=== PATIENT | female | born 1990 | race Caucasian/White ===

== ENCOUNTER → 2016-10-19 | Outpatient (CLI) | payer OTHER ==
[2016-10-19 12:45] LABS: CH 30.4; CHCM 33.8; HDW 2.53; MCH 30.3 pg (25.0-35.0); MCHC 33.5 g/dL (31.0-37.0); MCV 90.4 fL (80.0-100.0); Mean Platelet Volume 8.6; RBC 3.98 m/uL (3.80-5.40); RDW 12.9 % (11.5-15.5); WBC 13.5 k/uL (3.8-10.6)
[2016-10-19 12:52] LABS: Appearance,Urine Cloudy (Clear); Bacteria,Urine Occasional /hpf; Bilirubin,Urine Negative (Negative); Glucose,Urine (UA) Negative (Negative); Ketones,Urine Negative (Negative); Leukocyte Esterase,Urine Moderate (Negative); Mucus,Urine Few /hpf; Nitrite,Urine Negative (Negative); Particle Count 12181; Protein,Urine 1+ (Negative); Squamous Epithelial Cell,Urine 4 /hpf (0-4); UA Billing (MACRO vs. MICRO) MICRO; Urobilinogen,Urine <2.0 mg/dL (<2.0); WBC,Urine 4 /hpf (0-5)
== END | disposition home or self-care (01) ==
LOC: LABWHC1 10:48
PROVIDERS: ATTEND Obstetrics & Gynecology
DX: Z34.82 Encounter for supervision of other normal pregnancy, second trimester (principal); Z3A.00 Weeks of gestation of pregnancy not specified
CPT/HCPCS: 36415; 81001; 82950; 85027; 87086; 87491; 87591

== ENCOUNTER → 2016-11-09 | Outpatient (CLI) | payer OTHER ==
[2016-11-09 16:57] LABS: CH 30.7; CHCM 34.5; HCT 36.5 % (34.0-46.0); HDW 2.63; HGB 12.4 gm/dL (11.4-16.0); MCH 30.4 pg (25.0-35.0); MCV 89.3 fL (80.0-100.0); Mean Platelet Volume 9.4; RBC 4.08 m/uL (3.80-5.40)
[2016-11-09 19:13] LABS: Hemoglobin A1C 4.9 % (4.2-6.1)
== END | disposition home or self-care (01) ==
LOC: LABWHC1 16:00
PROVIDERS: ATTEND Obstetrics & Gynecology
DX: Z34.93 Encounter for supervision of normal pregnancy, unspecified, third trimester (principal); Z3A.00 Weeks of gestation of pregnancy not specified
CPT/HCPCS: 36415; 82947; 83036; 85027

== ENCOUNTER → 2016-11-24 | Outpatient (CLI) | payer OTHER ==
[2016-11-24 14:14] LABS: CH 30.6; CHCM 34.3; HCT 36.3 % (34.0-46.0); HGB 12.3 gm/dL (11.4-16.0); MCH 30.6 pg (25.0-35.0); MCV 89.8 fL (80.0-100.0); Mean Platelet Volume 9.8; RBC 4.04 m/uL (3.80-5.40); RDW 13.1 % (11.5-15.5)
== END | disposition home or self-care (01) ==
LOC: LABWHC1 13:44
PROVIDERS: ATTEND Obstetrics & Gynecology
DX: D69.3 Immune thrombocytopenic purpura (principal)
CPT/HCPCS: 36415; 85027

== ENCOUNTER 2016-12-09 12:59 | Outpatient (CLI) | payer OTHER | END 2016-12-09 13:53 | disposition home or self-care (01) | LOC: FBPOP 12:59 | PROVIDERS: ATTEND Obstetrics & Gynecology | DX: Z53.9 Procedure and treatment not carried out, unspecified reason (principal) | CPT/HCPCS: 59025; G0463; 99213 ==

== ENCOUNTER 2016-12-23 12:55 | Inpatient (IN) | payer OTHER ==
--- NOTE | 2016-12-23 15:25 | US ---
EXAMINATION TYPE: US OB limited DATE OF EXAM: 12/23/2016 3:04 PM COMPARISON: NONE CLINICAL HISTORY: JACOB . Patients states leaking fluid. Diabetic. EXAM PERFORMED: Transabdominal (TA) GESTATIONAL AGE / DATING Physician Established: (37 weeks/6 days) EDC: 01/07/2017 No growth performed on today?s study per ordering physician SURVEY JACOB: 24.5 cm Polyhydramnios Ultrasound evidence of premature rupture of membranes? no PRESENTATION: Vertex HEART RATE: 146 bpm RHYTHM: Normal TECHNOLOGIST IMPRESSION: Polyhydramnios. IMPRESSION: 1. JACOB of 24.5 cm compatible with polyhydramnios. 2. Cardiac activity of the fetus is identified at 146 bpm.
[2016-12-23] MEDS ORDERED: METHYLERGONOVINE 0.2 MG/ML 1 ML AMP IM PRN (15:28)
[2016-12-23] MEDS ORDERED: CARBOPROST TROMETHAMINE 250 MCG/ML 1 ML AMP IM PRN (15:28)
[2016-12-23] MEDS ORDERED: TERBUTALINE 1 MG/ML VIAL SQ PRN (15:28)
[2016-12-23] MEDS ORDERED: OXYTOCIN 10 UNIT/ML 1 ML VIAL IM PRN (15:28)
[2016-12-23] MEDS ORDERED: LIDOCAINE 1% (PF) 10 MG/ML (30 ML SDV) SQ PRN (15:28)
[2016-12-23] MEDS ORDERED: OXYTOCIN 30 UNITS/500 ML NS 30 UNIT in SALINE 1 500ML.BAG IV SCH ×2 (15:30→23:45)
[2016-12-23] MEDS: LACTATED RINGERS 1,000 ML IV SCH ×3 (16:14→21:23)
[2016-12-23 16:29] LABS: Basophils # (A) 0.1 k/uL (0-0.2); Basophils % (A) 1 %; CH 30.5; CHCM 34.9; Eosinophils # (A) 0.2 k/uL (0-0.7); Eosinophils % (A) 1 %; HCT 40.1 % (34.0-46.0); HDW 2.59; HGB 13.9 gm/dL (11.4-16.0); Luc # (Auto) 0.39; Luc % (Auto) 3; Lymphocytes # (A) 2.3 k/uL (1.0-4.8); Lymphocytes % (A) 15 %; MCH 30.3 pg (25.0-35.0); MCHC 34.6 g/dL (31.0-37.0); MCV 87.7 fL (80.0-100.0); Mean Platelet Volume 10.1; Monocytes # (A) 0.6 k/uL (0-1.0); Monocytes % (A) 4 %; Neutrophils # (A) 11.7 k/uL (1.3-7.7); Neutrophils % (A) 77 %; RBC 4.57 m/uL (3.80-5.40); RDW 12.9 % (11.5-15.5); WBC 15.2 k/uL (3.8-10.6); WBC (Perox) 15.24
[2016-12-23 16:31] LABS: Glucose,Whole Blood 73 mg/dL (75-99)
[2016-12-23 17:15] VITALS: BMI 42.4
--- NOTE | 2016-12-23 17:45 | P.HPOB ---
History of Present Illness H&P Date: 12/23/16 Chief Complaint: Leaking of fluid. This patient is a 26-year-old 2 para 0 female estimated date of confinement 01/07/2017 estimated gestational age 37-6/7 weeks who was in labor and delivery last evening after having some leaking of fluid around 1 in the morning. Evaluation apparently at that time was negative, however she did not have a amnio sure done. Patient repeat presented this afternoon with complaints of continued vaginal leakage and an initial amnio sure was positive. I did get a ultrasound which showed an amniotic fluid index of 24, however I repeated her amnio sure and it was still positive although her examination essentially did not show any amniotic fluid vaginally. I discussed this in detail with the patient and her partner in the understand although the ultrasound would indicate polyhydramnios, the amnio sure has had 2 positives and consistent with a probable slow leak. care is per Dr. Tyler and is complicated by gestational diabetes, 2 vessel umbilical cord, obesity, and velamentous cord insertion. Patient has been followed also with maternal medicine and most recently had a ultrasound approximately 2 weeks ago that showed the infant to be 5 lbs. 5 oz. in the vertex presentation. Review of Systems Constitutional: Denies chills, Denies fever Cardiovascular: Denies chest pain, Denies shortness of breath Respiratory: Denies cough Gastrointestinal: Reports heartburn Genitourinary: Reports as per HPI, Reports , Reports vaginal discharge Menstruation: Reports amenorrhea Musculoskeletal: Denies myalgias Integumentary: Denies pruritus, Denies rash Neurological: Denies numbness, Denies weakness Past Medical History Past Medical History: Asthma Additional Past Medical History / Comment(s): Obesity and gestational diabetes. History of Any Multi-Drug Resistant Organisms: None Reported Past Surgical History: Cholecystectomy Past Anesthesia/Blood Transfusion Reactions: No Reported Reaction Past Psychological History: Anxiety, Depression Additional Psychological History / Comment(s): STATES NO RX Smoking Status: Current every day smoker Past Alcohol Use History: None Reported Past Drug Use History: None Reported - Past Family History Mother Family Medical History: No Reported History Medications and Allergies Home Medications Medication Instructions Recorded Confirmed Type Omeprazole [Omeprazole] 20 mg PO BID 02/27/15 12/23/16 History Pnv with Ca,No.72/Iron/FA 1 each PO 11/30/16 History [ Plus Tablet] Allergies Allergy/AdvReac Type Severity Reaction Status Date / Time latex Allergy Mild Rash/Hives Verified 12/23/16 17:18 Penicillins Allergy Unknown Verified 02/27/15 14:21 Sulfa (Sulfonamide Allergy Unknown Verified 12/23/16 17:18 Antibiotics) Exam - Vital Signs Vital signs: Vital Signs Temp Pulse Resp BP 12/23/16 16:08 96.8 F L 93 16 113/56 Intake and Output 12/23/16 12/23/16 12/23/16 06:59 14:59 22:59 Other: Weight 248 kg 112.037 kg Patient Weight 12/24/16 06:59 Weight 112.037 kg - OBG Physical Exam Abdomen: bowel sounds normal, no diffuse tenderness, no bruit present, no guarding noted, no hepatomegaly, no splenomegaly, no mass Vulva: both: normal Vagina: normal moisture Cervix: no lesion (Cervix is 1-2 cm dilated and thick and -3 station.), no discharge Uterus: enlarged Results blood work shows she is a positive, rubella immune, RPR nonreactive, HIV nonreactive, hepatitis B negative, patient had an abnormal Glucola and three -hour gtt. Most recent ultrasound approximately 2 weeks ago per maternal medicine shows the estimated weight at 5 lbs. 15 oz. There is a known 2 vessel cord and velamentous cord insertion. Result Diagrams: 12/23/16 16:05 Abnormal Lab Results - Last 24 Hours (Table) 12/23/16 12/23/16 Range/Units 16:05 16:28 WBC 15.2 H (3.8-10.6) k/uL Neutrophils # 11.7 H (1.3-7.7) k/uL POC Glucose (mg/dL) 73 L (75-99) mg/dL Assessment and Plan (1) Prolonged premature rupture of membranes Narrative/Plan: This is a 26-year-old 2 para 0 female 37-6/7 weeks gestation with what appears to be prolonged premature rupture of membranes since about 1 AM. Patient also has known 2 vessel umbilical cord, velamentous cord insertion, and gestational diabetes, and obesity. Plan is antibiotic prophylaxis due to prolonged rupture membranes and induction of labor. I've discussed this in detail with the patient and her family and she understands the reason for the induction. We will alert the skin lifter bacon to prolonged rupture membranes for evaluation. Status: Acute (2) Single umbilical artery Status: Acute (3) Gestational diabetes Status: Acute (4) Obesity Status: Acute (5) Third trimester Status: Acute
[2016-12-23 17:58] LABS: Glucose,Whole Blood 85 mg/dL (75-99)
[2016-12-23] MEDS: BUTORPHANOL 1 MG/ML 1 ML VIAL IV PRN ×2 (18:11→20:12)
[2016-12-23 19:32] LABS: Glucose,Whole Blood 85 mg/dL (75-99)
[2016-12-23 20:21] LABS: Glucose,Whole Blood 93 mg/dL (75-99)
[2016-12-23] MEDS ORDERED: SODIUM CHLORIDE 0.9% 100 ML BAG ONE (20:42)
[2016-12-23] MEDS ORDERED: BUPIVACAINE (PF) 0.25% 30 ML VIAL ONE (20:42)
[2016-12-23] MEDS ORDERED: fentaNYL (PF) 50 MCG/ML 5 ML AMP ONE (20:42)
[2016-12-23 20:52] LABS: Hemoglobin A1C 5.3 % (4.2-6.1)
[2016-12-23 21:06] LABS: Glucose,Whole Blood 97 mg/dL (75-99)
[2016-12-23] MEDS ORDERED: BUPIVACAINE (PF) 0.25% 25 ML, fentaNYL (PF) 200 MCG in SODIUM CHLORIDE 0.9% 71 ML EPIDURAL ONE (21:07)
[2016-12-23 22:07] LABS: Glucose,Whole Blood 105 mg/dL (75-99)
[2016-12-23] MEDS ORDERED: CLINDAMYCIN 900 MG in DEXTROSE 5% IN WATER 50 ML IVPB SCH ×2 (23:00)
[2016-12-23] MEDS ORDERED: ACETAMINOPHEN TAB 325 MG TAB PO PRN (23:36)
[2016-12-23] MEDS ORDERED: WITCH HAZEL 1 EACH MED..PAD TOPICAL PRN (23:36)
[2016-12-23] MEDS ORDERED: Acetaminophen-Codeine 300-30mg TAB PO PRN (23:36)
[2016-12-23] MEDS ORDERED: diphenhydrAMINE 50 MG/ML 1 ML VIAL IVP PRN (23:36)
[2016-12-23] MEDS ORDERED: SIMETHICONE 80 MG CHEWABLE PO PRN (23:36)
[2016-12-23] MEDS ORDERED: diphenhydrAMINE 25 MG CAP PO PRN (23:36)
[2016-12-23] MEDS ORDERED: ZOLPIDEM 5 MG TAB PO PRN (23:36)
[2016-12-23] MEDS ORDERED: BENZOCAINE/MENTHOL SPRAY 1 GM/SPRAY AEROSOL TOPICAL PRN (23:36)
[2016-12-23] MEDS ORDERED: LANOLIN CREAM 5 GM TUBE TOPICAL PRN (23:36)
[2016-12-23] MEDS ORDERED: HYDROCORTISONE 2.5% RECTAL CREAM 30 GM TUBE RECTAL PRN (23:36)
--- NOTE | 2016-12-23 23:43 | P.PROBDLV ---
Vaginal Delivery Note - . Vaginal Delivery Note: Normal vaginal delivery viable female Apgars 9 and 9 delivery time is 2318 hrs. Please see dictated H&P for intimate details of this patient's admission. Brief summary this is a 26-year-old 2 para 0 female 37-6/7 weeks gestation admitted with complaints of leaking since about 1:00 last evening found to have 2 positive amnio sure. Patient had artificial rupture membranes for copious amount of clear fluid and Pitocin induction of labor. Patient received 2 doses of Stadol and then an epidural for pain control. Labor progressed she pushed for approximately 40 minutes. Patient pushes the head to the perineum the posterior perineum is instructed 1% lidocaine. A midline episiotomy is made at this time. We then have controlled delivery of the 's head over the perineum. Mouth and nares are bulb suctioned there is no evidence of nuchal cord. Gentle downward traction we then have delivery the anterior and posterior shoulder and rest this 's body. This is a vigorous viable female infant Apgars are 9 and 9 delivery time was 2318 hrs. Infant has spontaneous respirations and good cry and grossly appeared normal after delivery of the infant the umbilical cord is doubly clamped and cut appears to be 2 vessels. The infant is late the mother's abdomen. The placenta spontaneously delivered intact does appear to have a velamentous insertion. Estimated blood loss is 100 mL. Inspection the perineum shows bilateral superficial periurethral lacerations that did not require sutures and a second-degree midline laceration that is repaired with 3-0 Vicryl usual fashion. Good reapproximation is noted. There are no complications. and mother stable delivery room. All counts are correct 3. Infant will have blood work done due to prolonged premature rupture membranes.
[2016-12-24] MEDS: IBUPROFEN 600 MG TAB PO PRN ×3 (00:11→18:53)
[2016-12-24] MEDS: SENNOSIDES-DOCUSATE SODIUM 1 EACH TAB PO SCH ×2 (07:52→20:07)
--- NOTE | 2016-12-24 08:02 | P.PNOBGVD ---
Subjective - Subjective Principal diagnosis: day 1 Interval history: Overall negative is doing well. She is ambulating, voiding, and she is tolerating a diet. She voices no complaints. At this time her vital signs are stable and afebrile. Heart is regular, lungs are clear, extremities without pain. Uterus is firm at the umbilicus and lochia is currently reported light. It is unclear how long she could've been ruptured for. Baby is in special care due to question infection. When she was seen in the morning on 39 should mention that she thought her water matter broke and then she came back later in the day and reported that she thought her water broke prior to that incident when she was in labor and delivery early in the morning on 39. So is therefore unclear when she could've had her water break. We'll continue observational care for now and plan for discharge tomorrow. Patient reports: Reports appetite normal, Reports voiding normally, Reports pain well controlled, Reports ambulating normally Steele: in NICU Objective - Latest Vital Signs Latest vital signs: Vital Signs Temp Pulse Resp BP BP Pulse Ox 12/24/16 04:00 97.9 F 90 16 122/68 98 12/24/16 01:25 97.0 F L 81 16 105/56 12/24/16 00:53 97.1 F L 95 16 114/58 12/24/16 00:25 97.2 F L 92 16 99/67 12/24/16 00:10 97.2 F L 84 16 105/58 12/23/16 23:55 97.3 F L 90 16 121/63 12/23/16 23:40 97.6 F 93 16 129/60 12/23/16 23:25 97.7 F 112 H 16 114/66 12/23/16 16:08 96.8 F L 93 16 113/56 Intake and Output 12/23/16 12/24/16 12/24/16 22:59 06:59 14:59 Other: # Voids 1 1 Weight 112.037 kg - Labs Labs: Abnormal Lab Results - Last 24 Hours (Table) 12/23/16 12/23/16 12/23/16 Range/Units 16:05 16:28 21:54 WBC 15.2 H (3.8-10.6) k/uL Neutrophils # 11.7 H (1.3-7.7) k/uL POC Glucose (mg/dL) 73 L 105 H (75-99) mg/dL
[2016-12-24] MEDS: Acetaminophen-Codeine 300-30mg TAB PO PRN (12:00)
[2016-12-25] MEDS: Acetaminophen-Codeine 300-30mg TAB PO PRN (03:06)
[2016-12-25] MEDS: IBUPROFEN 600 MG TAB PO PRN (03:08)
[2016-12-25 08:40] VITALS: BP 121/75; PULSE 88; RESP 16; TEMP 97.6
[2016-12-25] MEDS: SENNOSIDES-DOCUSATE SODIUM 1 EACH TAB PO SCH (08:46)
--- NOTE | 2016-12-25 09:25 | P.DS ---
Providers Date of admission: 12/23/16 15:24 Expected date of discharge: 12/25/16 Attending physician: Adeel Staley Primary care physician: Juanito Tyler - Discharge Diagnosis(es) (1) Normal vaginal delivery Current Visit: Yes Status: Acute Hospital Course: PAtient presented with SROM and had pitocin augmentation of labor. She underwent a normal vaginal delivery and had an uncomplicated post course. She will be discharged home PPD #2 in stable condition to follow up with Dr Tyler in 6 weeks. Plan - Discharge Summary New Discharge Prescriptions: Ibuprofen [Motrin] 600 mg PO Q6HR PRN #30 tab PRN Reason: Mild Pain Or Fever >= 100.5 Discharge Medication List Omeprazole [Omeprazole] 20 mg PO BID 02/27/15 [History] Pnv with Ca,No.72/Iron/FA [ Plus Tablet] 1 each PO 11/30/16 [History] Ibuprofen [Motrin] 600 mg PO Q6HR PRN #30 tab 12/25/16 [Rx] Follow up Appointment(s)/Referral(s): Juanito Tyler DO [Primary Care Provider] - 6 Weeks Discharge Disposition: HOME SELF-CARE
== END 2016-12-25 13:05 | disposition home or self-care (01) | DRG 775 ==
LOC: FBPOP 12:55 → 4FBP 15:24
PROVIDERS: ADMIT Obstetrics & Gynecology; ATTEND Obstetrics & Gynecology
PROC: 10E0XZZ Delivery of Products of Conception, External Approach (ICD-10-PCS; principal; 2016-12-23)
PROC: 0KQM0ZZ Repair Perineum Muscle, Open Approach (ICD-10-PCS; 2016-12-23)
PROC: 0W8NXZZ Division of Female Perineum, External Approach (ICD-10-PCS; 2016-12-23)
PROC: 00HU33Z Insertion of Infusion Device into Spinal Canal, Percutaneous Approach (ICD-10-PCS; 2016-12-23)
PROC: 3E0R3CZ (ICD-10-PCS; 2016-12-23)
PROC: 3E033VJ Introduction of Other Hormone into Peripheral Vein, Percutaneous Approach (ICD-10-PCS; 2016-12-23)
DX: O42.92 Full-term premature rupture of membranes, unspecified as to length of time between rupture and onset of labor (principal); Z68.41 Body mass index [BMI] 40.0-44.9, adult; O40.3XX0 Polyhydramnios, third trimester, not applicable or unspecified; O24.420 Gestational diabetes mellitus in childbirth, diet controlled; Z37.0 Single live birth; Z3A.37 37 weeks gestation of pregnancy; E66.9 Obesity, unspecified; O99.214 Obesity complicating childbirth; O43.123 Velamentous insertion of umbilical cord, third trimester; O70.1 Second degree perineal laceration during delivery; O69.89X0 Labor and delivery complicated by other cord complications, not applicable or unspecified; O71.82 Other specified trauma to perineum and vulva; Z79.899 Other long term (current) drug therapy; F17.200 Nicotine dependence, unspecified, uncomplicated; O99.52 Diseases of the respiratory system complicating childbirth; J45.909 Unspecified asthma, uncomplicated; O99.334 Smoking (tobacco) complicating childbirth; Z86.59 Personal history of other mental and behavioral disorders
CPT/HCPCS: 59025; 76815; 83036; 84112; 85025; 88307; 99213

== ENCOUNTER → 2019-12-06 | Outpatient (CLI) | payer OTHER ==
--- NOTE | 2019-12-06 14:31 | FL ---
EXAMINATION TYPE: FL UGI air w esophagus DATE OF EXAM: 12/06/2019 CLINICAL INDICATION: 29-year-old female epigastric pain, persistent after cholecystectomy 5 years ago . COMPARISON: None Total Fluoroscopy Time: 1 minute 50 seconds. Total images: 39 FINDINGS: The swallowing mechanism is normal and hypopharyngeal anatomy is preserved. The patient had poor tolerance to oral contrast ingestion due to thick consistency. The cervical and thoracic portions of the esophagus have a normal course and caliber and normal motility. The mucosa i s normal and no persistent filling defect is encountered. No hiatal hernia is present. However, positional maneuvers with the patient supine results in severe gastroesophageal reflux to the level of the thoracic inlet. There is limited coating of the stomach due to poor tolerance of contrast ingestion. No obvious suspi cious filling defect. There may be mild gastric fold thickening. No discrete ulcer is seen. IMPRESSION: 1. Positional maneuvers elicit severe gastroesophageal reflux. No sizable hiatal hernia seen. 2. There may be mild gastric fold thickening that can be seen with chronic gastritis. 3. Limited coating of the stomach due to poor patient tolerance to the ingestion of oral contrast. Th is limits the assessment of the stomach.
== END | disposition home or self-care (01) ==
LOC: RADUSWWP 10:06
PROVIDERS: ATTEND Internal Medicine
DX: K21.9 Gastro-esophageal reflux disease without esophagitis (principal); Z88.2 Allergy status to sulfonamides; Z88.0 Allergy status to penicillin
CPT/HCPCS: 74246

== ENCOUNTER 2021-04-09 12:47 | Emergency (ER) | payer OTHER ==
[2021-04-09] MEDS ORDERED: KETOROLAC 15 MG/ML 1 ML VIAL IVP STA (13:53)
[2021-04-09] MEDS ORDERED: SODIUM CHLORIDE 0.9% 1,000 ML IV STA (13:53)
[2021-04-09] MEDS ORDERED: PANTOPRAZOLE 40 MG/10 ML VIAL IVP STA (13:53)
[2021-04-09 14:08] LABS: Appearance,Urine Turbid (Clear); Bacteria,Urine Moderate /hpf; Bilirubin,Urine Negative (Negative); Blood,Urine Small (Negative); Budding Yeast,Urine Rare /hpf; Color,Urine Yellow; Glucose,Urine (UA) Negative (Negative); Ketones,Urine 4+ (Negative); Leukocyte Esterase,Urine Moderate (Negative); Mucus,Urine Few /hpf; Nitrite,Urine Negative (Negative); PH, Urine 5.5 (5.0-8.0); Protein,Urine 1+ (Negative); RBC,Urine 16 /hpf (0-5); Squamous Epithelial Cell,Urine 62 /hpf (0-4); WBC,Urine 63 /hpf (0-5)
--- NOTE | 2021-04-09 14:08 | ED ---
Abdominal Pain HPI - General Chief Complaint: Abdominal Pain Stated Complaint: abd pain Time Seen by Provider: 04/09/21 13:33 Source: patient Mode of arrival: ambulatory Limitations: no limitations - History of Present Illness Initial Comments: Patient is a 30-year-old female with history of gastritis, presenting to the emergency Department with complaints of epigastric discomfort as well as nausea for the past 3 days. She states that 3 days ago she ate some [employer] and then about 2 hours later started having some indigestion, nausea and thought it could be food poisoning. She has not had any diarrhea, no fevers or chills. She states the pain has continued and she wants to make sure it's nothing else. She does have history of cholecystectomy, no other abdominal surgeries. She states it feels different than her regular gastritis pain. She rates it a 7/10, mild radiation towards the back. She does not think she is , no chest pain or shortness of breath. She has no further complaints at this time. Patient's vital signs are stable upon arrival. - Related Data Home Medications Medication Instructions Recorded Confirmed Fexofenadine HCl [Anaid Allergy] 180 mg PO DAILY 04/09/21 04/09/21 Omeprazole Magnesium [PriLOSEC OTC] 20 mg PO BID 04/09/21 04/09/21 Gummies 2 tab PO DAILY 04/09/21 04/09/21 Previous Rx's Medication Instructions Recorded Cephalexin [Keflex] 500 mg PO BID 5 Days #10 cap 04/09/21 Dicyclomine [Bentyl] 20 mg PO TID #20 tablet 04/09/21 Allergies Allergy/AdvReac Type Severity Reaction Status Date / Time latex Allergy Mild Rash/Hives Verified 04/09/21 14:54 Penicillins Allergy Unknown Verified 04/09/21 14:54 Sulfa (Sulfonamide Allergy Unknown Verified 04/09/21 14:54 Antibiotics) Review of Systems ROS Statement: Those systems with pertinent positive or pertinent negative responses have been documented in the HPI. ROS Other: All systems not noted in ROS Statement are negative. Past Medical History Past Medical History: Asthma Additional Past Medical History / Comment(s): Obesity and gestational diabetes., chronic gastritis History of Any Multi-Drug Resistant Organisms: None Reported Past Surgical History: Cholecystectomy Past Anesthesia/Blood Transfusion Reactions: No Reported Reaction Past Psychological History: Anxiety, Depression Smoking Status: Current every day smoker Past Alcohol Use History: None Reported Past Drug Use History: None Reported - Past Family History Mother Family Medical History: No Reported History General Exam - General Exam Comments Initial Comments: GENERAL: Patient is well-developed and well-nourished. Patient is nontoxic and in no acute distress. HEAD: Atraumatic, normocephalic. EYES: Pupils equal round and reactive to light, extraocular movements intact, sclera anicteric, conjunctiva are normal. Eyelids were unremarkable. ENT: TMs normal, nares patent, oropharynx clear without exudates. Moist mucous membranes. NECK: Normal range of motion, supple without lymphadenopathy or JVD. LUNGS: Unlabored respirations. Breath sounds clear to auscultation bilaterally and equal. No wheezes rales or rhonchi. HEART: Regular rate and rhythm without murmurs, rubs or gallops. ABDOMEN: Soft, epigastric pain on palpation, normoactive bowel sounds. No guarding, no rebound. No masses appreciated. : Deferred MUSCULOSKELETAL: Normal extremities with adequate strength and normal range of motion, no pitting or edema. No clubbing or cyanosis. NEUROLOGICAL: Patient is alert and oriented x 3. Motor and sensory are also intact. Cranial nerves II through XII grossly intact. Symmetrical smile. Normal speech, normal gait. PSYCH: Normal mood, normal affect. SKIN: Warm, Dry, normal turgor, no rashes or lesions noted. Limitations: no limitations Course Vital Signs 04/09/21 04/09/21 12:56 15:29 Temperature 98.2 F 98.4 F Pulse Rate 95 63 Respiratory 20 18 Rate Blood Pressure 103/62 109/60 O2 Sat by Pulse 99 96 Oximetry Medical Decision Making - Medical Decision Making Patient is a 30-year-old female here with history of gastritis presenting with epigastric pain 3 days along with nausea. Vitals are stable, afebrile. She does have history of cholecystectomy. Labs show a white count of 15.4, lipase elevated at 834, urine does show evidence of bacteria, 4+ ketones. KUB showed no acute process. Patient was given fluids, Protonix and Toradol, and reexamination, she is feeling much better, she is having no discomfort, she is feeling hungry. I discussed these findings with the patient. She has no history of pancreatitis, does not drink alcohol. She will continue increasing her fluids at home, I will start her on antibiotic for UTI as well as a trial of Bentyl for abdominal cramping. Urine culture is pending. She'll follow up with her primary care physician in 1-3 days. She is in agreement with this plan of care. She is stable for discharge. Return parameters were discussed with her and she verbalized understanding. Case discussed Dr. Walters. - Lab Data Result diagrams: 04/09/21 14:39 04/09/21 14:39 Lab Results 04/09/21 04/09/21 04/09/21 Range/Units 13:31 13:31 14:39 WBC 15.4 H (3.8-10.6) k/uL RBC 4.95 (3.80-5.40) m/uL Hgb 14.5 (11.4-16.0) gm/dL Hct 42.0 (34.0-46.0) % MCV 84.9 (80.0-100.0) fL MCH 29.3 (25.0-35.0) pg MCHC 34.5 (31.0-37.0) g/dL RDW 12.7 (11.5-15.5) % Plt Count 168 (150-450) k/uL MPV 8.6 Neutrophils % 82 % Lymphocytes % 12 % Monocytes % 4 % Eosinophils % 1 % Basophils % 0 % Neutrophils # 12.6 H (1.3-7.7) k/uL Lymphocytes # 1.9 (1.0-4.8) k/uL Monocytes # 0.6 (0-1.0) k/uL Eosinophils # 0.1 (0-0.7) k/uL Basophils # 0.0 (0-0.2) k/uL Sodium (137-145) mmol/L Potassium (3.5-5.1) mmol/L Chloride (98-107) mmol/L Carbon Dioxide (22-30) mmol/L Anion Gap mmol/L BUN (7-17) mg/dL Creatinine (0.52-1.04) mg/dL Est GFR (CKD-EPI)AfAm (>60 ml/min/1.73 sqM) Est GFR (CKD-EPI)NonAf (>60 ml/min/1.73 sqM) Glucose (74-99) mg/dL Plasma Lactic Acid Yao (0.7-2.0) mmol/L Calcium (8.4-10.2) mg/dL Total Bilirubin (0.2-1.3) mg/dL AST (14-36) U/L ALT (4-34) U/L Alkaline Phosphatase (38-126) U/L Total Protein (6.3-8.2) g/dL Albumin (3.5-5.0) g/dL Amylase (30-110) U/L Lipase (23-300) U/L Urine Color Yellow Urine Appearance Turbid H (Clear) Urine pH 5.5 (5.0-8.0) Ur Specific [place] 1.040 H (1.001-1.035) Urine Protein 1+ H (Negative) Urine Glucose (UA) Negative (Negative) Urine Ketones 4+ H (Negative) Urine Blood Small H (Negative) Urine Nitrite Negative (Negative) Urine Bilirubin Negative (Negative) Urine Urobilinogen 2.0 (<2.0) mg/dL Ur Leukocyte Esterase Moderate H (Negative) Urine RBC 16 H (0-5) /hpf Urine WBC 63 H (0-5) /hpf Ur Squamous Epith Cells 62 H (0-4) /hpf Urine Bacteria Moderate H (None) /hpf Urine Mucus Few H (None) /hpf Urine Yeast (Budding) Rare H (None) /hpf Urine HCG, Qual Not Detected (Not Detectd) 04/09/21 04/09/21 Range/Units 14:39 14:39 WBC (3.8-10.6) k/uL RBC (3.80-5.40) m/uL Hgb (11.4-16.0) gm/dL Hct (34.0-46.0) % MCV (80.0-100.0) fL MCH (25.0-35.0) pg MCHC (31.0-37.0) g/dL RDW (11.5-15.5) % Plt Count (150-450) k/uL MPV Neutrophils % % Lymphocytes % % Monocytes % % Eosinophils % % Basophils % % Neutrophils # (1.3-7.7) k/uL Lymphocytes # (1.0-4.8) k/uL Monocytes # (0-1.0) k/uL Eosinophils # (0-0.7) k/uL Basophils # (0-0.2) k/uL Sodium 139 (137-145) mmol/L Potassium 4.0 (3.5-5.1) mmol/L Chloride 106 (98-107) mmol/L Carbon Dioxide 21 L (22-30) mmol/L Anion Gap 12 mmol/L BUN 16 (7-17) mg/dL Creatinine 0.68 (0.52-1.04) mg/dL Est GFR (CKD-EPI)AfAm >90 (>60 ml/min/1.73 sqM) Est GFR (CKD-EPI)NonAf >90 (>60 ml/min/1.73 sqM) Glucose 113 H (74-99) mg/dL Plasma Lactic Acid Yao 1.3 (0.7-2.0) mmol/L Calcium 9.4 (8.4-10.2) mg/dL Total Bilirubin 0.5 (0.2-1.3) mg/dL AST 19 (14-36) U/L ALT 14 (4-34) U/L Alkaline Phosphatase 105 (38-126) U/L Total Protein 7.0 (6.3-8.2) g/dL Albumin 4.2 (3.5-5.0) g/dL Amylase 165 H (30-110) U/L Lipase 834 H (23-300) U/L Urine Color Urine Appearance (Clear) Urine pH (5.0-8.0) Ur Specific [place] (1.001-1.035) Urine Protein (Negative) Urine Glucose (UA) (Negative) Urine Ketones (Negative) Urine Blood (Negative) Urine Nitrite (Negative) Urine Bilirubin (Negative) Urine Urobilinogen (<2.0) mg/dL Ur Leukocyte Esterase (Negative) Urine RBC (0-5) /hpf Urine WBC (0-5) /hpf Ur Squamous Epith Cells (0-4) /hpf Urine Bacteria (None) /hpf Urine Mucus (None) /hpf Urine Yeast (Budding) (None) /hpf Urine HCG, Qual (Not Detectd) Disposition Clinical Impression: Abdominal pain, Pancreatitis, Dehydration, UTI (urinary tract infection) Disposition: HOME SELF-CARE Condition: Stable Instructions (If sedation given, give patient instructions): Dehydration (ED) Additional Instructions: Please return to the Emergency Department if symptoms worsen or any other concerns. Recommend increasing fluids over the next few days, take antibiotics as prescribed. Trial of Bentyl for abdominal cramping. Follow-up with your primary care physician in 1-3 days for recheck. Prescriptions: Dicyclomine [Bentyl] 20 mg PO TID #20 tablet Cephalexin [Keflex] 500 mg PO BID 5 Days #10 cap Is patient prescribed a controlled substance at d/c from ED?: No Referrals: Brian Ruiz MD [Primary Care Provider] - 1-2 days Time of Disposition: 15:54
[2021-04-09 14:47] LABS: Basophils % (A) 0 %; Eosinophils # (A) 0.1 k/uL (0-0.7); Eosinophils % (A) 1 %; HGB 14.5 gm/dL (11.4-16.0); Lymphocytes # (A) 1.9 k/uL (1.0-4.8); Lymphocytes % (A) 12 %; MCH 29.3 pg (25.0-35.0); MCHC 34.5 g/dL (31.0-37.0); MCV 84.9 fL (80.0-100.0); Mean Platelet Volume 8.6; Monocytes # (A) 0.6 k/uL (0-1.0); Monocytes % (A) 4 %; Neutrophils # (A) 12.6 k/uL (1.3-7.7); Neutrophils % (A) 82 %; Platelet Count 168 k/uL (150-450); RBC 4.95 m/uL (3.80-5.40); RDW 12.7 % (11.5-15.5); WBC 15.4 k/uL (3.8-10.6)
[2021-04-09 14:57] LABS: ALT 14 U/L (4-34); AST 19 U/L (14-36); African American GFR (CKD) >90 (>60 ml/min/1.73 sqM); Albumin 4.2 g/dL (3.5-5.0); Alkaline Phosphatase 105 U/L (38-126); Amylase 165 U/L (30-110); Anion Gap 12 mmol/L; Blood Urea Nitrogen 16 mg/dL (7-17); Calcium 9.4 mg/dL (8.4-10.2); Carbon Dioxide 21 mmol/L (22-30); Chloride 106 mmol/L (98-107); Glucose 113 mg/dL (74-99); Lipase 834 U/L (23-300); Non-African American GFR(CKD) >90 (>60 ml/min/1.73 sqM); Sodium 139 mmol/L (137-145); Total Bilirubin 0.5 mg/dL (0.2-1.3)
--- NOTE | 2021-04-09 15:05 | XR ---
EXAMINATION TYPE: XR KUB DATE OF EXAM: 04/09/2021 2:53 PM CLINICAL HISTORY: Abdominal pain TECHNIQUE: Single supine KUB image of the abdomen is obtained. COMPARISON: None. FINDINGS: Scattered gas is seen in non-distended small bowel loops. Gas and fecal material is seen in non-distended colon. There is no visceromegaly, pneumoperitoneum, or abnormal calcification apprecia arline. The lung bases are clear and the osseous structures are intact. IMPRESSION: Overall nonobstructive bowel gas pattern.
[2021-04-09 15:30] VITALS: BP 109/60; PULSE 63; RESP 18; TEMP 98.4
== END 2021-04-09 16:05 | disposition home or self-care (01) ==
LOC: EC 12:47
DX: E86.0 Dehydration (principal); N39.0 Urinary tract infection, site not specified; K85.90 Acute pancreatitis without necrosis or infection, unspecified; E66.9 Obesity, unspecified; J45.909 Unspecified asthma, uncomplicated; F17.200 Nicotine dependence, unspecified, uncomplicated; Z88.2 Allergy status to sulfonamides; Z91.040 Latex allergy status; Z88.0 Allergy status to penicillin; Z90.49 Acquired absence of other specified parts of digestive tract
CPT/HCPCS: 99284; 96374; 96375; 96361; 36415; 80053; 82150; 83605; 83690; 85025; 81001; 81025; 87086; 74018; J1885; C9113

== ENCOUNTER 2021-05-02 22:14 | Emergency (ER) | payer OTHER ==
[2021-05-02] MEDS ORDERED: MORPHINE SULFATE 4 MG/ML SYRINGE IV STA (22:45)
[2021-05-02] MEDS ORDERED: SODIUM CHLORIDE 0.9% 1,000 ML IV STA (22:45)
[2021-05-02] MEDS ORDERED: ONDANSETRON 4 MG/2 ML VIAL IVP STA (22:45)
[2021-05-02 23:06] LABS: Basophils # (A) 0.1 k/uL (0-0.2); Basophils % (A) 0 %; Eosinophils # (A) 0.4 k/uL (0-0.7); Eosinophils % (A) 3 %; HCT 39.8 % (34.0-46.0); HGB 13.8 gm/dL (11.4-16.0); Lymphocytes # (A) 2.6 k/uL (1.0-4.8); Lymphocytes % (A) 19 %; MCH 29.9 pg (25.0-35.0); MCHC 34.7 g/dL (31.0-37.0); MCV 86.1 fL (80.0-100.0); Mean Platelet Volume 8.5; Monocytes # (A) 0.4 k/uL (0-1.0); Monocytes % (A) 3 %; Neutrophils # (A) 9.9 k/uL (1.3-7.7); Neutrophils % (A) 74 %; Platelet Count 155 k/uL (150-450); RBC 4.63 m/uL (3.80-5.40); RDW 12.8 % (11.5-15.5); WBC 13.5 k/uL (3.8-10.6)
[2021-05-02 23:10] LABS: Appearance,Urine Turbid (Clear); Bacteria,Urine Many /hpf; Bilirubin,Urine Negative (Negative); Blood,Urine Negative (Negative); Color,Urine Yellow; Glucose,Urine (UA) Negative (Negative); Ketones,Urine Negative (Negative); Leukocyte Esterase,Urine Large (Negative); Mucus,Urine Moderate /hpf; Nitrite,Urine Negative (Negative); Protein,Urine Trace (Negative); RBC,Urine 2 /hpf (0-5); Specific Gravity,Urine 1.023 (1.001-1.035); Squamous Epithelial Cell,Urine 61 /hpf (0-4); WBC,Urine 19 /hpf (0-5)
[2021-05-02 23:16] LABS: ALT 16 U/L (4-34); AST 20 U/L (14-36); African American GFR (CKD) >90 (>60 ml/min/1.73 sqM); Albumin 3.8 g/dL (3.5-5.0); Alkaline Phosphatase 109 U/L (38-126); Anion Gap 6 mmol/L; Blood Urea Nitrogen 6 mg/dL (7-17); Calcium 8.8 mg/dL (8.4-10.2); Carbon Dioxide 25 mmol/L (22-30); Chloride 107 mmol/L (98-107); Glucose 93 mg/dL (74-99); Lipase 464 U/L (23-300); Non-African American GFR(CKD) >90 (>60 ml/min/1.73 sqM); Potassium 3.5 mmol/L (3.5-5.1); Sodium 138 mmol/L (137-145); Total Bilirubin 0.3 mg/dL (0.2-1.3); Total Protein 6.4 g/dL (6.3-8.2)
[2021-05-03] MEDS ORDERED: KETOROLAC 15 MG/ML 1 ML VIAL IVP STA (00:24)
[2021-05-03] MEDS ORDERED: PANTOPRAZOLE 40 MG/10 ML VIAL IVP STA (00:24)
--- NOTE | 2021-05-03 00:26 | ED ---
Abdominal Pain HPI - General Chief Complaint: Abdominal Pain Stated Complaint: Abd pain Time Seen by Provider: 05/02/21 22:26 Source: patient Limitations: no limitations - History of Present Illness Initial Comments: 30 year-old female patient presents to the emergency department for evaluation of upper abdominal pain radiating through to her back. Patient states she was seen here recently and diagnosed with pancreatitis. States that she was discharged and was starting to feel better when symptoms worsened today. States the pain is sharp and stabbing. States that symptoms worsen with food intake. Reports nausea, no vomiting today. Denies any fever or chills. Denies any con stipation or diarrhea. Has had cholecystectomy in the past. Patient denies any recent rash, cough, shortness of breath, chest pain, numbness, tingling, dizziness, weakness, hematuria, dysuria, urinary urgency, urinary frequency, headache, visual changes, or any other complaints. - Related Data Home Medications Medication Instructions Recorded Confirmed Fexofenadine HCl [Anaid Allergy] 180 mg PO DAILY 04/09/21 04/09/21 Omeprazole Magnesium [PriLOSEC OTC] 20 mg PO BID 04/09/21 04/09/21 Gummies 2 tab PO DAILY 04/09/21 04/09/21 Previous Rx's Medication Instructions Recorded Cephalexin [Keflex] 500 mg PO BID 5 Days #10 cap 04/09/21 Dicyclomine [Bentyl] 20 mg PO TID #20 tablet 04/09/21 Allergies Allergy/AdvReac Type Severity Reaction Status Date / Time latex Allergy Mild Rash/Hives Verified 04/09/21 14:54 Penicillins Allergy Unknown Verified 04/09/21 14:54 Sulfa (Sulfonamide Allergy Unknown Verified 04/09/21 14:54 Antibiotics) Review of Systems ROS Statement: Those systems with pertinent positive or pertinent negative responses have been documented in the HPI. ROS Other: All systems not noted in ROS Statement are negative. Past Medical History Past Medical History: Asthma Additional Past Medical History / Comment(s): Obesity and gestational diabetes., chronic gastritis History of Any Multi-Drug Resistant Organisms: None Reported Past Surgical History: Cholecystectomy Past Anesthesia/Blood Transfusion Reactions: No Reported Reaction Past Psychological History: Anxiety, Depression Smoking Status: Current every day smoker Past Alcohol Use History: None Reported Past Drug Use History: None Reported - Past Family History Mother Family Medical History: No Reported History General Exam Limitations: no limitations General appearance: alert, in no apparent distress, other (Physical well- developed, well-nourished adult female patient in no acute distress. Vital signs upon presentation are temperature 98.5F, pulse 91, respirations 18, blood pressure 105/58, pulse ox 98% on room air.) ENT exam: Present: normal exam, normal oropharynx, mucous membranes moist Respiratory exam: Present: normal lung sounds bilaterally. Absent: respiratory distress, wheezes, rales, rhonchi, stridor Cardiovascular Exam: Present: regular rate, normal rhythm, normal heart sounds. Absent: systolic murmur, diastolic murmur, rubs, gallop, clicks GI/Abdominal exam: Present: soft, tenderness (Midepigastric), normal bowel sounds. Absent: distended, guarding, rebound, rigid Neurological exam: Present: alert, oriented X3, CN II-XII intact Psychiatric exam: Present: normal affect, normal mood Skin exam: Present: warm, dry, intact, normal color. Absent: rash Course Vital Signs 05/02/21 05/03/21 22:19 01:01 Temperature 98.5 F 98 F Pulse Rate 91 77 Respiratory 18 22 Rate Blood Pressure 105/58 129/79 O2 Sat by Pulse 98 98 Oximetry Medical Decision Making - Medical Decision Making 30-year-old female patient presents to the emergency department today for evaluation of epigastric abdominal pain. Physical examination did reveal midep igastric tenderness. Labs reviewed and did reveal elevated white blood cell count at 13.5. Liver enzymes and alk phos were normal. Lipase is 464. Urinalysis shows a turbid appearance with large leukocyte esterase, 19 white blood cells, 61 squamous epithelial cells, many bacteria. She is not . She is given IV fluids and pain medication here. She was informed of all results. She'll be discharged with instructions to do clear liquid diet over the next 24 hours. Instructed to follow-up with the compliance engineer products for further evaluation. Return parameters were discussed in detail. She verbalizes understanding and agrees this plan. Case discussed with my attending Dr. King. - Lab Data Result diagrams: 05/02/21 22:55 05/02/21 22:55 Lab Results 05/02/21 05/02/21 05/02/21 Range/Units 22:55 22:55 22:55 WBC 13.5 H (3.8-10.6) k/uL RBC 4.63 (3.80-5.40) m/uL Hgb 13.8 (11.4-16.0) gm/dL Hct 39.8 (34.0-46.0) % MCV 86.1 (80.0-100.0) fL MCH 29.9 (25.0-35.0) pg MCHC 34.7 (31.0-37.0) g/dL RDW 12.8 (11.5-15.5) % Plt Count 155 (150-450) k/uL MPV 8.5 Neutrophils % 74 % Lymphocytes % 19 % Monocytes % 3 % Eosinophils % 3 % Basophils % 0 % Neutrophils # 9.9 H (1.3-7.7) k/uL Lymphocytes # 2.6 (1.0-4.8) k/uL Monocytes # 0.4 (0-1.0) k/uL Eosinophils # 0.4 (0-0.7) k/uL Basophils # 0.1 (0-0.2) k/uL Sodium (137-145) mmol/L Potassium (3.5-5.1) mmol/L Chloride (98-107) mmol/L Carbon Dioxide (22-30) mmol/L Anion Gap mmol/L BUN (7-17) mg/dL Creatinine (0.52-1.04) mg/dL Est GFR (CKD-EPI)AfAm (>60 ml/min/1.73 sqM) Est GFR (CKD-EPI)NonAf (>60 ml/min/1.73 sqM) Glucose (74-99) mg/dL Plasma Lactic Acid Yao (0.7-2.0) mmol/L Calcium (8.4-10.2) mg/dL Total Bilirubin (0.2-1.3) mg/dL AST (14-36) U/L ALT (4-34) U/L Alkaline Phosphatase (38-126) U/L Total Protein (6.3-8.2) g/dL Albumin (3.5-5.0) g/dL Lipase (23-300) U/L Urine Color Yellow Urine Appearance Turbid H (Clear) Urine pH 7.0 (5.0-8.0) Ur Specific [place] 1.023 (1.001-1.035) Urine Protein Trace H (Negative) Urine Glucose (UA) Negative (Negative) Urine Ketones Negative (Negative) Urine Blood Negative (Negative) Urine Nitrite Negative (Negative) Urine Bilirubin Negative (Negative) Urine Urobilinogen 2.0 (<2.0) mg/dL Ur Leukocyte Esterase Large H (Negative) Urine RBC 2 (0-5) /hpf Urine WBC 19 H (0-5) /hpf Ur Squamous Epith Cells 61 H (0-4) /hpf Urine Bacteria Many H (None) /hpf Urine Mucus Moderate H (None) /hpf Urine HCG, Qual Not Detected (Not Detectd) 05/02/21 05/02/21 Range/Units 22:55 22:55 WBC (3.8-10.6) k/uL RBC (3.80-5.40) m/uL Hgb (11.4-16.0) gm/dL Hct (34.0-46.0) % MCV (80.0-100.0) fL MCH (25.0-35.0) pg MCHC (31.0-37.0) g/dL RDW (11.5-15.5) % Plt Count (150-450) k/uL MPV Neutrophils % % Lymphocytes % % Monocytes % % Eosinophils % % Basophils % % Neutrophils # (1.3-7.7) k/uL Lymphocytes # (1.0-4.8) k/uL Monocytes # (0-1.0) k/uL Eosinophils # (0-0.7) k/uL Basophils # (0-0.2) k/uL Sodium 138 (137-145) mmol/L Potassium 3.5 (3.5-5.1) mmol/L Chloride 107 (98-107) mmol/L Carbon Dioxide 25 (22-30) mmol/L Anion Gap 6 mmol/L BUN 6 L (7-17) mg/dL Creatinine 0.72 (0.52-1.04) mg/dL Est GFR (CKD-EPI)AfAm >90 (>60 ml/min/1.73 sqM) Est GFR (CKD-EPI)NonAf >90 (>60 ml/min/1.73 sqM) Glucose 93 (74-99) mg/dL Plasma Lactic Acid Yao 1.1 (0.7-2.0) mmol/L Calcium 8.8 (8.4-10.2) mg/dL Total Bilirubin 0.3 (0.2-1.3) mg/dL AST 20 (14-36) U/L ALT 16 (4-34) U/L Alkaline Phosphatase 109 (38-126) U/L Total Protein 6.4 (6.3-8.2) g/dL Albumin 3.8 (3.5-5.0) g/dL Lipase 464 H (23-300) U/L Urine Color Urine Appearance (Clear) Urine pH (5.0-8.0) Ur Specific [place] (1.001-1.035) Urine Protein (Negative) Urine Glucose (UA) (Negative) Urine Ketones (Negative) Urine Blood (Negative) Urine Nitrite (Negative) Urine Bilirubin (Negative) Urine Urobilinogen (<2.0) mg/dL Ur Leukocyte Esterase (Negative) Urine RBC (0-5) /hpf Urine WBC (0-5) /hpf Ur Squamous Epith Cells (0-4) /hpf Urine Bacteria (None) /hpf Urine Mucus (None) /hpf Urine HCG, Qual (Not Detectd) Disposition Clinical Impression: Abdominal pain, Pancreatitis Disposition: HOME SELF-CARE Condition: Good Instructions (If sedation given, give patient instructions): Pancreatitis (ED), Abdominal Pain (ED) Additional Instructions: Follow up with gastroenterology for further evaluation as soon as possible. Follow up with your primary care physician for recheck in 1-2 days. Return for any new, worsening, or concerning symptoms. Is patient prescribed a controlled substance at d/c from ED?: No Referrals: Brian Ruiz MD [Primary Care Provider] - 1-2 days Anurag Decker MD [STAFF PHYSICIAN] - 1-2 days Time of Disposition: 00:25
[2021-05-03 01:04] VITALS: BP 129/79; PULSE 77; RESP 22; TEMP 98
== END 2021-05-03 01:03 | disposition home or self-care (01) ==
LOC: EC 22:14
DX: K85.90 Acute pancreatitis without necrosis or infection, unspecified (principal); E66.9 Obesity, unspecified; D72.829 Elevated white blood cell count, unspecified; F17.200 Nicotine dependence, unspecified, uncomplicated; J45.909 Unspecified asthma, uncomplicated; Z88.0 Allergy status to penicillin; Z88.2 Allergy status to sulfonamides; Z91.040 Latex allergy status; Z68.35 Body mass index [BMI] 35.0-35.9, adult
CPT/HCPCS: 36415; 80053; 83605; 83690; 85025; 81001; 81025; 87086; 99284; 96374; 96375; 96361; J2270; J2405; J1885; C9113

== ENCOUNTER 2021-05-06 20:37 | Observation (INO) | payer OTHER ==
[2021-05-06] MEDS ORDERED: HYDROmorphone 0.5 MG/0.5 ML SYRINGE IVP STA (20:58)
[2021-05-06] MEDS ORDERED: SODIUM CHLORIDE 0.9% 1,000 ML IV STA ×3 (20:58→22:49)
[2021-05-06] MEDS ORDERED: PANTOPRAZOLE 40 MG/10 ML VIAL IVP STA (21:02)
--- NOTE | 2021-05-06 21:11 | ED ---
Abdominal Pain HPI - General Chief Complaint: Abdominal Pain Stated Complaint: abd pain Source: patient, family, RN notes reviewed, old records reviewed Mode of arrival: ambulatory Limitations: no limitations - History of Present Illness Initial Comments: 30-year-old white female, alert and oriented 4, presents to the emergency room with her significant other complaining of upper abdominal pain. Patient states that she was seen here on May 03 for the same and was diagnosed with pancreatitis. She has seen GI who ordered a CAT scan which she has not had done yet. Patient states that the pain has been there for the past couple of days however for the past one hour has been significantly worse. She states that she had her gallbladder removed. She is a half a pack a day smoker. Takes no medications on a daily basis. She denies any fever, nausea vomiting or diarrhe a. She states no chance of negative tests 2 days ago. Patient states that the last time she was here they gave her Dilaudid and Protonix which helped with the pain. MD Complaint: abdominal pain -: days(s) (2) Location: LUQ, RUQ Radiation: back Severity scale (1-10): 4 Quality: sharp Consistency: constant Improves With: nothing Context: other (Recent diagnosis of pancreatitis) Associated Symptoms: denies other symptoms - Related Data Home Medications Medication Instructions Recorded Confirmed Fexofenadine HCl [Anaid Allergy] 180 mg PO DAILY 04/09/21 05/06/21 Omeprazole Magnesium [PriLOSEC OTC] 20 mg PO BID 04/09/21 05/06/21 Dicyclomine HCl 10 mg PO TID 05/06/21 05/06/21 Pantoprazole Sodium [Protonix] 40 mg PO DAILY 05/06/21 05/06/21 Allergies Allergy/AdvReac Type Severity Reaction Status Date / Time latex Allergy Mild Rash/Hives Verified 05/06/21 21:07 Penicillins Allergy Unknown Verified 05/06/21 21:07 Sulfa (Sulfonamide Allergy Unknown Verified 05/06/21 21:07 Antibiotics) Review of Systems ROS Statement: Those systems with pertinent positive or pertinent negative responses have been documented in the HPI. ROS Other: All systems not noted in ROS Statement are negative. Past Medical History Past Medical History: Asthma Additional Past Medical History / Comment(s): Obesity and gestational diabetes., chronic gastritis, pancreatitis History of Any Multi-Drug Resistant Organisms: None Reported Past Surgical History: Cholecystectomy Past Anesthesia/Blood Transfusion Reactions: No Reported Reaction Past Psychological History: Anxiety, Depression Smoking Status: Current every day smoker Past Alcohol Use History: None Reported Past Drug Use History: None Reported - Past Family History Mother Family Medical History: No Reported History General Exam Limitations: no limitations General appearance: alert, in no apparent distress Head exam: Present: atraumatic, normocephalic, normal inspection Eye exam: Present: normal appearance, PERRL, EOMI. Absent: scleral icterus, conjunctival injection, periorbital swelling ENT exam: Present: normal exam, normal oropharynx, mucous membranes moist, other (Enlarged left tonsil, no exudate) Neck exam: Present: normal inspection, full ROM. Absent: tenderness, meningismus, lymphadenopathy, thyromegaly Respiratory exam: Present: normal lung sounds bilaterally. Absent: respiratory distress, wheezes, rales, rhonchi, stridor, chest wall tenderness, accessory muscle use, decreased breath sounds, prolonged expiratory Cardiovascular Exam: Present: regular rate, normal rhythm, normal heart sounds. Absent: systolic murmur, diastolic murmur, rubs, gallop, clicks GI/Abdominal exam: Present: soft, tenderness (Right and left upper quadrants; negative Minor sign), normal bowel sounds. Absent: distended, guarding, rebound, rigid, mass, pulsatile mass, hernia Extremities exam: Present: normal inspection, full ROM, normal capillary refill. Absent: tenderness, pedal edema, joint swelling, calf tenderness Back exam: Present: normal inspection, full ROM. Absent: tenderness, CVA tenderness (R), CVA tenderness (L), muscle spasm, paraspinal tenderness, rash noted Neurological exam: Present: alert, oriented X3, CN II-XII intact Psychiatric exam: Present: normal affect, normal mood Skin exam: Present: warm, dry, intact, normal color. Absent: rash, cyanosis, diaphoretic, erythema, petechiae, pallor, mottled Course Vital Signs 05/06/21 05/06/21 20:37 20:40 Temperature 98.2 F Pulse Rate 81 81 Respiratory 18 20 Rate Blood Pressure 95/66 127/75 O2 Sat by Pulse 99 100 Oximetry - Reevaluation(s) Reevaluation #1: 05/06/21 22:14 Pain and nausea both relieved at this time. Patient comfortable resting on the cart Time: 22:14 Medical Decision Making - Medical Decision Making She is well-appearing patient. test is negative, with 1+ ketones noted. patient was given 1 L of normal saline, started on lactated Ringer's at 100 mL an hour. Pain was relieved with Dilaudid. WBC count is 15.1 with previous elevations on 04/09/21 and 05/02/21. Amylase is 1268 which is elevated from 165 on [place] 09[place] [address] [place] of the abdomen and pelvis is negative. There is Pancreatic lymph nodes but no significant pancreatitis. Case discussed with Dr King. Will admit to Dr. Tan with consult to GI. - Lab Data Result diagrams: 05/06/21 21:06 05/06/21 21:06 Lab Results 05/06/21 05/06/21 05/06/21 Range/Units 21:06 21:06 21:06 WBC 15.1 H (3.8-10.6) k/uL RBC 4.82 (3.80-5.40) m/uL Hgb 14.0 (11.4-16.0) gm/dL Hct 42.4 (34.0-46.0) % MCV 87.9 (80.0-100.0) fL MCH 29.1 (25.0-35.0) pg MCHC 33.1 (31.0-37.0) g/dL RDW 12.8 (11.5-15.5) % Plt Count 144 L (150-450) k/uL MPV 9.4 Neutrophils % 77 % Lymphocytes % 15 % Monocytes % 5 % Eosinophils % 2 % Basophils % 0 % Neutrophils # 11.7 H (1.3-7.7) k/uL Lymphocytes # 2.3 (1.0-4.8) k/uL Monocytes # 0.7 (0-1.0) k/uL Eosinophils # 0.2 (0-0.7) k/uL Basophils # 0.1 (0-0.2) k/uL PT 10.5 (9.0-12.0) sec INR 1.0 (<1.2) APTT 22.9 (22.0-30.0) sec Sodium (137-145) mmol/L Potassium (3.5-5.1) mmol/L Chloride (98-107) mmol/L Carbon Dioxide (22-30) mmol/L Anion Gap mmol/L BUN (7-17) mg/dL Creatinine (0.52-1.04) mg/dL Est GFR (CKD-EPI)AfAm (>60 ml/min/1.73 sqM) Est GFR (CKD-EPI)NonAf (>60 ml/min/1.73 sqM) Glucose (74-99) mg/dL Plasma Lactic Acid Yao (0.7-2.0) mmol/L Calcium (8.4-10.2) mg/dL Total Bilirubin (0.2-1.3) mg/dL AST (14-36) U/L ALT (4-34) U/L Alkaline Phosphatase (38-126) U/L Total Protein (6.3-8.2) g/dL Albumin (3.5-5.0) g/dL Amylase (30-110) U/L Lipase (23-300) U/L Urine Color Yellow Urine Appearance Cloudy H (Clear) Urine pH 7.0 (5.0-8.0) Ur Specific [place] 1.010 (1.001-1.035) Urine Protein Negative (Negative) Urine Glucose (UA) Negative (Negative) Urine Ketones 1+ H (Negative) Urine Blood Negative (Negative) Urine Nitrite Negative (Negative) Urine Bilirubin Negative (Negative) Urine Urobilinogen <2.0 (<2.0) mg/dL Ur Leukocyte Esterase Small H (Negative) Urine RBC 1 (0-5) /hpf Urine WBC 7 H (0-5) /hpf Ur Squamous Epith Cells 3 (0-4) /hpf Urine Bacteria Many H (None) /hpf Urine Mucus Rare H (None) /hpf Urine Yeast (Budding) Few H (None) /hpf Urine HCG, Qual (Not Detectd) 05/06/21 05/06/21 05/06/21 Range/Units 21:06 21:06 21:06 WBC (3.8-10.6) k/uL RBC (3.80-5.40) m/uL Hgb (11.4-16.0) gm/dL Hct (34.0-46.0) % MCV (80.0-100.0) fL MCH (25.0-35.0) pg MCHC (31.0-37.0) g/dL RDW (11.5-15.5) % Plt Count (150-450) k/uL MPV Neutrophils % % Lymphocytes % % Monocytes % % Eosinophils % % Basophils % % Neutrophils # (1.3-7.7) k/uL Lymphocytes # (1.0-4.8) k/uL Monocytes # (0-1.0) k/uL Eosinophils # (0-0.7) k/uL Basophils # (0-0.2) k/uL PT (9.0-12.0) sec INR (<1.2) APTT (22.0-30.0) sec Sodium 140 (137-145) mmol/L Potassium 3.6 (3.5-5.1) mmol/L Chloride 106 (98-107) mmol/L Carbon Dioxide 24 (22-30) mmol/L Anion Gap 10 mmol/L BUN 10 (7-17) mg/dL Creatinine 0.76 (0.52-1.04) mg/dL Est GFR (CKD-EPI)AfAm >90 (>60 ml/min/1.73 sqM) Est GFR (CKD-EPI)NonAf >90 (>60 ml/min/1.73 sqM) Glucose 123 H (74-99) mg/dL Plasma Lactic Acid Yao 1.0 (0.7-2.0) mmol/L Calcium 9.3 (8.4-10.2) mg/dL Total Bilirubin 0.6 (0.2-1.3) mg/dL AST 64 H (14-36) U/L ALT 33 (4-34) U/L Alkaline Phosphatase 110 (38-126) U/L Total Protein 6.7 (6.3-8.2) g/dL Albumin 4.2 (3.5-5.0) g/dL Amylase 1268 H* (30-110) U/L Lipase 89363 H (23-300) U/L Urine Color Urine Appearance (Clear) Urine pH (5.0-8.0) Ur Specific [place] (1.001-1.035) Urine Protein (Negative) Urine Glucose (UA) (Negative) Urine Ketones (Negative) Urine Blood (Negative) Urine Nitrite (Negative) Urine Bilirubin (Negative) Urine Urobilinogen (<2.0) mg/dL Ur Leukocyte Esterase (Negative) Urine RBC (0-5) /hpf Urine WBC (0-5) /hpf Ur Squamous Epith Cells (0-4) /hpf Urine Bacteria (None) /hpf Urine Mucus (None) /hpf Urine Yeast (Budding) (None) /hpf Urine HCG, Qual Not Detected (Not Detectd) Disposition Clinical Impression: Pancreatitis Disposition: ADMITTED IP TO THIS [facility] Condition: Fair Referrals: Brian Ruiz MD [Primary Care Provider] - 1-2 days Decision Date: 05/06/21 Decision Time: 22:55
[2021-05-06 21:28] LABS: Basophils # (A) 0.1 k/uL (0-0.2); Basophils % (A) 0 %; Eosinophils # (A) 0.2 k/uL (0-0.7); Eosinophils % (A) 2 %; HCT 42.4 % (34.0-46.0); Lymphocytes # (A) 2.3 k/uL (1.0-4.8); Lymphocytes % (A) 15 %; MCH 29.1 pg (25.0-35.0); MCHC 33.1 g/dL (31.0-37.0); MCV 87.9 fL (80.0-100.0); Mean Platelet Volume 9.4; Monocytes # (A) 0.7 k/uL (0-1.0); Monocytes % (A) 5 %; Neutrophils # (A) 11.7 k/uL (1.3-7.7); Neutrophils % (A) 77 %; Platelet Count 144 k/uL (150-450); RBC 4.82 m/uL (3.80-5.40); RDW 12.8 % (11.5-15.5); WBC 15.1 k/uL (3.8-10.6)
[2021-05-06 21:32] LABS: Appearance,Urine Cloudy (Clear); Bacteria,Urine Many /hpf; Bilirubin,Urine Negative (Negative); Blood,Urine Negative (Negative); Budding Yeast,Urine Few /hpf; Color,Urine Yellow; Glucose,Urine (UA) Negative (Negative); Ketones,Urine 1+ (Negative); Leukocyte Esterase,Urine Small (Negative); Mucus,Urine Rare /hpf; Nitrite,Urine Negative (Negative); Protein,Urine Negative (Negative); RBC,Urine 1 /hpf (0-5); Squamous Epithelial Cell,Urine 3 /hpf (0-4); Urobilinogen,Urine <2.0 mg/dL (<2.0); WBC,Urine 7 /hpf (0-5)
[2021-05-06 21:36] LABS: Partial Thromboplastin Time 22.9 sec (22.0-30.0); Prothrombin Time 10.5 sec (9.0-12.0)
[2021-05-06 21:38] LABS: ALT 33 U/L (4-34); AST 64 U/L (14-36); African American GFR (CKD) >90 (>60 ml/min/1.73 sqM); Albumin 4.2 g/dL (3.5-5.0); Alkaline Phosphatase 110 U/L (38-126); Anion Gap 10 mmol/L; Blood Urea Nitrogen 10 mg/dL (7-17); Calcium 9.3 mg/dL (8.4-10.2); Carbon Dioxide 24 mmol/L (22-30); Chloride 106 mmol/L (98-107); Glucose 123 mg/dL (74-99); Non-African American GFR(CKD) >90 (>60 ml/min/1.73 sqM); Potassium 3.6 mmol/L (3.5-5.1); Sodium 140 mmol/L (137-145); Total Bilirubin 0.6 mg/dL (0.2-1.3); Total Protein 6.7 g/dL (6.3-8.2)
[2021-05-06 21:52] LABS: Amylase 1268 U/L (30-110)
--- NOTE | 2021-05-06 22:14 | CT ---
EXAMINATION TYPE: CT abdomen pelvis wo con DATE OF EXAM: 05/06/2021 COMPARISON: None HISTORY: Abdominal pain, history of pancreatitis. CT DLP: 1000 mGycm Automated exposure control for dose reduction was used. Images obtained from the diaphragm to the floor the pelvis with no contrast. Lung bases are clear. There is no pleural effusion. Heart size is normal. There is no pericardial eff usion. Liver spleen stomach pancreas appear intact. Bile ducts are not dilated. There are clips from cholecy stectomy. There is no adrenal mass. Kidneys show normal size and contour. There is no hydronephrosis. Appendix is posterior and lateral and appears normal. There is no retroperitoneal adenopathy. Bladder distends smoothly. There is no inguinal hernia. There is no free fluid in the pelvis. Uterus is anteverted. T here is no pelvic mass. There is no mesenteric edema. There is no ascites or free air. There is no si gn of a bowel obstruction. There are a few small peripancreatic lymph nodes. The lumbar vertebra have normal spacing and alignment. Posterior elements are intact. There is no com pression fracture. Bony pelvis is intact. The hip joints are intact. There is no hip dysplasia. IMPRESSION: Negative CT scan of the abdomen pelvis. There are a few peripancreatic lymph nodes. No evidence of an y significant pancreatitis.
[2021-05-06] MEDS ORDERED: LACTATED RINGERS 1,000 ML IV ONE (22:27)
[2021-05-06 22:40] LABS: Lipase 16168 U/L (23-300)
[2021-05-06] MEDS ORDERED: SODIUM CHLORIDE 0.9% 500 ML 500 ML IV STA (22:49)
[2021-05-06] MEDS ORDERED: ONDANSETRON 4 MG/2 ML VIAL IVP STA (22:49)
[2021-05-06] MEDS ORDERED: MORPHINE SULFATE 4 MG/ML SYRINGE IVP PRN (22:49)
[2021-05-06] MEDS ORDERED: ONDANSETRON 4 MG/2 ML VIAL IVP PRN ×2 (22:49→22:55)
[2021-05-06] MEDS ORDERED: MORPHINE SULFATE 4 MG/ML SYRINGE IVP STA (22:49)
[2021-05-06] MEDS ORDERED: NALOXONE 0.4 MG/ML 1 ML VIAL IV PRN (22:55)
[2021-05-06] MEDS ORDERED: HYDROmorphone 0.5 MG/0.5 ML SYRINGE IVP PRN (22:55)
[2021-05-07] MEDS: HYDROmorphone 1 MG/ML 1 ML SYRINGE IVP PRN ×5 (01:28→18:43)
[2021-05-07] MEDS: PANTOPRAZOLE 40 MG/10 ML VIAL IVP SCH (09:29)
[2021-05-07 10:32] LABS: ALT 199 U/L (4-34); AST 283 U/L (14-36); African American GFR (CKD) >90 (>60 ml/min/1.73 sqM); Albumin 3.1 g/dL (3.5-5.0); Alkaline Phosphatase 102 U/L (38-126); Anion Gap 3 mmol/L; Blood Urea Nitrogen 6 mg/dL (7-17); Calcium 8.2 mg/dL (8.4-10.2); Carbon Dioxide 23 mmol/L (22-30); Chloride 115 mmol/L (98-107); Glucose 78 mg/dL (74-99); Non-African American GFR(CKD) >90 (>60 ml/min/1.73 sqM); Potassium 4.6 mmol/L (3.5-5.1); Sodium 141 mmol/L (137-145); Total Bilirubin 1.2 mg/dL (0.2-1.3); Total Protein 5.4 g/dL (6.3-8.2)
[2021-05-07 10:44] LABS: HCT 40.4 % (34.0-46.0); MCH 29.7 pg (25.0-35.0); MCHC 32.1 g/dL (31.0-37.0); MCV 92.4 fL (80.0-100.0); Mean Platelet Volume 9.4; Platelet Count 122 k/uL (150-450); RBC 4.37 m/uL (3.80-5.40); RDW 12.9 % (11.5-15.5); WBC 7.9 k/uL (3.8-10.6)
[2021-05-07] MEDS: DOCUSATE 100 MG CAP PO SCH ×2 (11:59→20:37)
[2021-05-07] MEDS: NICOTINE 14MG/24HR PATCH TRANSDERM SCH (11:59)
[2021-05-07] MEDS: SODIUM CHLORIDE 0.9% 1,000 ML IV SCH ×2 (12:02→23:22)
[2021-05-07] MEDS ORDERED: diphenhydrAMINE 25 MG CAP PO PRN (13:04)
--- NOTE | 2021-05-07 14:03 | US ---
EXAMINATION TYPE: US gallbladder DATE OF EXAM: 05/07/2021 COMPARISON: CT 05/06/2021, US 01/30/2015 CLINICAL HISTORY: elevated LFTS, pancreatitis. Difficult and limited exam due to patient's body habit us and overlying bowel gas. Post cholecystectomy EXAM MEASUREMENTS: Liver Length: 13.2 cm Gallbladder Wall: Surgically absent CBD: 0.9 cm Right Kidney: 9.2 x 4.9 x 4.1 cm Pancreas: Obscured by bowel gas Liver: Heterogeneous Gallbladder: Surgically absent Evidence for sonographic Minor's sign: No CBD: Normal postcholecystectomy Right Kidney: No hydronephrosis or masses seen as visualized IMPRESSION: Fatty liver.
--- NOTE | 2021-05-07 14:26 | P.CONS ---
History of Present Illness - Reason for Consult Consult date: 05/07/21 pancreatitis Requesting physician: Claribel Ruano - Chief Complaint Abdominal pain - History of Present Illness This is a 30-year-old white female who presented to the emergency department yesterday evening for complaints of severe epigastric pain. She has a past medical history of previous pancreatitis, first episode in March of this year, followed by recurrent episode in early April. She had an appointment yesterday with Ann Bautista SPRING INTERN from gastroenterology, patient states she order blood work and to have an outpatient ultrasound. Patient has not completed those yet. She denies any family history of pancreatitis, denies any alcohol abuse, no new medications, and no underlying liver disease. She does have a history of a cholecystectomy approximately 6 years ago for gallstones. She states she has had abdominal pain for last 3 days duration, however yesterday evening it was worse in her epigastric region and she wanted further evaluation. She states she had some nausea, no vomiting. On admission WBC 15, hemoglobin 14, hematocrit 42, platelet count 144,000, total bilirubin 0.6, alkaline phosphatase 110, AST 64, ALT 33, amylase 1268, lipase 21945. CT of the abdomen and pelvis impression stated negative computed tomography scan of the abdomen and pelvis. Few. Pancreatic lymph nodes. No evidence of any significant pancreatitis. Bile ducts are not dilated. Clips from cholecystectomy. Today's repeat labs patient has elevation in her LFTs, total bilirubin 1.2, alkaline phosphatase 102, AST 283, ALT 199. Review of Systems REVIEW OF SYSTEMS: CARDIOPULMONARY: No chest pain or shortness of breath. Gastrointestinal: Epigastric pain. Nausea, no vomiting. No hematemesis, coffee-ground emesis. No rectal bleeding, or melena. GENITOURINARY: No dysuria or hematuria. MUSCULOSKELETAL: Reports normal range of motion., Joint pain. SKIN: No rashes. No jaundice. ENDOCRINE: No chills, fevers. No excessive weight gain or loss. No polydipsia or polyuria. PSYCHIATRIC: Unremarkable. NEUROLOGY: No change in mental status. Denies dizziness, headache. ENT: Vision unremarkable. CONSTITUTIONAL: No recent weight loss. No fever, chills, night sweats. Past Medical History Past Medical History: Asthma Additional Past Medical History / Comment(s): Obesity and gestational diabetes., chronic gastritis, pancreatitis History of Any Multi-Drug Resistant Organisms: None Reported Past Surgical History: Cholecystectomy Past Anesthesia/Blood Transfusion Reactions: No Reported Reaction Smoking Status: Current every day smoker - Past Family History Mother Family Medical History: No Reported History Additional Family Medical History / Comment(s): Currently alive, Cervical cancer terminal Medications and Allergies Home Medications Medication Instructions Recorded Confirmed Type Fexofenadine HCl [Anaid Allergy] 180 mg PO DAILY 04/09/21 05/06/21 History Omeprazole Magnesium [PriLOSEC OTC] 20 mg PO BID 04/09/21 05/06/21 History Dicyclomine HCl 10 mg PO TID 05/06/21 05/06/21 History Pantoprazole Sodium [Protonix] 40 mg PO DAILY 05/06/21 05/06/21 History Allergies Allergy/AdvReac Type Severity Reaction Status Date / Time latex Allergy Mild Rash/Hives Verified 05/06/21 21:07 Penicillins Allergy Unknown Verified 05/06/21 21:07 Sulfa (Sulfonamide Allergy Unknown Verified 05/06/21 21:07 Antibiotics) Physical Exam Vitals: Vital Signs Temp Pulse Pulse Resp BP BP Pulse Ox 05/07/21 08:10 98.5 F 67 18 105/62 98 05/06/21 23:57 98.3 F 70 18 104/70 05/06/21 23:22 73 18 117/74 98 05/06/21 20:40 81 20 127/75 100 05/06/21 20:37 98.2 F 81 18 95/66 99 Intake and Output 05/06/21 05/07/21 05/07/21 22:59 06:59 14:59 Other: # Voids 2 Weight 97.522 kg 97.2 kg General appearance: The patient is alert, oriented, appears in no acute distress. HET: Head is normocephalic and atraumatic. Conjunctiva pink. Sclera anicteric. Neck: Supple without lymphadenopathy. Trachea midline. Heart: S1 S2. Regular rate and rhythm. Lungs: Clear to auscultation. Abdomen: Soft, right upper quadrant and epigastric tenderness, nondistended with bowel sounds. No guarding or rigidity. Skin: No rashes. No jaundice. Extremities: Normal skin color and turgor. No pedal edema. Neurological: No focal deficits. Alert and oriented 3.. Results CBC & Chem 7: 05/07/21 08:59 05/07/21 08:59 Labs: Abnormal Lab Results - Last 24 Hours (Table) 05/06/21 05/06/21 05/06/21 Range/Units 21:06 21:06 21:06 WBC 15.1 H (3.8-10.6) k/uL Plt Count 144 L (150-450) k/uL Neutrophils # 11.7 H (1.3-7.7) k/uL Chloride (98-107) mmol/L BUN (7-17) mg/dL Glucose 123 H (74-99) mg/dL Calcium (8.4-10.2) mg/dL AST 64 H (14-36) U/L ALT (4-34) U/L Total Protein (6.3-8.2) g/dL Albumin (3.5-5.0) g/dL Amylase 1268 H* (30-110) U/L Lipase 71976 H (23-300) U/L Urine Appearance Cloudy H (Clear) Urine Ketones 1+ H (Negative) Ur Leukocyte Esterase Small H (Negative) Urine WBC 7 H (0-5) /hpf Urine Bacteria Many H (None) /hpf Urine Mucus Rare H (None) /hpf Urine Yeast (Budding) Few H (None) /hpf 05/07/21 05/07/21 Range/Units 08:59 08:59 WBC (3.8-10.6) k/uL Plt Count 122 L (150-450) k/uL Neutrophils # (1.3-7.7) k/uL Chloride 115 H (98-107) mmol/L BUN 6 L (7-17) mg/dL Glucose (74-99) mg/dL Calcium 8.2 L (8.4-10.2) mg/dL AST 283 H (14-36) U/L ALT 199 H (4-34) U/L Total Protein 5.4 L (6.3-8.2) g/dL Albumin 3.1 L (3.5-5.0) g/dL Amylase (30-110) U/L Lipase (23-300) U/L Urine Appearance (Clear) Urine Ketones (Negative) Ur Leukocyte Esterase (Negative) Urine WBC (0-5) /hpf Urine Bacteria (None) /hpf Urine Mucus (None) /hpf Urine Yeast (Budding) (None) /hpf Comments: CT abdomen and pelvis negative CT scan of the abdomen and pelvis. Few peripancreatic lymph nodes. No evidence of any significant pancreatitis Gallbladder ultrasound shows a common bile duct of 0.9 cm, gallbladder surgically absent. Liver heterogeneous, impression fatty liver. Assessment and Plan (1) Pancreatitis Narrative/Plan: -year-old female who presented to the emergency department with complaints of severe epigastric pain associated with nausea but no vomiting. Patient has had 2 prior episodes of pancreatitis for which he was seen and evaluated in the emergency department and sent home. She was told to follow-up with gastroenterology and had an appointment with Ann ballesteros yesterday, outpatient labs and ultrasound was ordered. Patient states the pain worsened throughout the evening therefore she came for further evaluation. As part of her workup with CT of the abdomen and pelvis was completed which showed no significant findings. No evidence of pancreatitis. On admission patient had elevation in her pancreatic enzymes consistent with pancreatitis, amylase 1268, lipase 16,168, total bilirubin 0.6, alkaline phosphatase 110, AST 64, ALT 33. Patient denies any previous history of alcohol abuse, no new medications, no family history of pancreatitis, she is status post cholecystectomy 6 years ago for gallstones. At this time unknown etiology of pancreatitis, will order PHILIPPE, IgG 4, and triglycerides and gallbladder ultrasound ordered. Current Visit: Yes Status: Acute Code(s): K85.90 - ACUTE PANCREATITIS WITHOUT NECROSIS OR INFECTION, UNSP SNOMED Code(s): 31627918 (2) Abdominal pain Current Visit: No Status: Acute Code(s): R10.9 - UNSPECIFIED ABDOMINAL PAIN SNOMED Code(s): 55162683 (3) Obesity Current Visit: No Status: Acute Code(s): E66.9 - OBESITY, UNSPECIFIED SNOMED Code(s): 897733205 (4) Fatty liver Narrative/Plan: Likely related to obesity, as seen on abdominal ultrasound. Current Visit: Yes Status: Acute Code(s): K76.0 - FATTY (CHANGE OF) LIVER, NOT ELSEWHERE CLASSIFIED SNOMED Code(s): 400433248 Plan: 1. Continue symptomatic and supportive care 2. Aggressive IV hydration 3. Nothing by mouth except icechips 4. Pain medications as needed 5. Repeat lipase, CMP daily 6. Ultrasound of gallbladder ordered and reviewed 7. PHILIPPE, IgG 4, triglycerides order 8. Recommend MRI pancreas/MRCP with and without contrast, patient is refusing due to claustrophobia. States Ann was going to order outpatient open MRI. Thank you for this consultation, we will continue to follow Dr. Decker I agree with the dictator's note, documented as a scribe by Yuliana Dumont.
[2021-05-07 14:37] VITALS: RESP 16
--- NOTE | 2021-05-07 15:39 | P.HPIM ---
History of Present Illness Patient is a pleasant 30-year-old female came in the emergency department complains of severe epigastric abdominal pain along with nausea. Patient is found to have elevated highly elevated lipase up to 60 16,000 and elevated amylase. Patient doesn't drink alcohol regularly. Patient had had another episode of pancreatic that is in the past. Patient had a cholecystectomy in the past patient liver enzymes are bit elevated today because of which have gallbladder ultrasound was obtained as recommended by gastroenterology and he didn't show any choledocholithiasis. Patient had a CT of the abdomen which did not show any edema of the pancreas as per the radiologist's reading. She doesn't have nausea any more abdominal pain significantly improved and patient is hungry at this time patient is nothing by mouth is receiving IV fluids at this time. REVIEW OF SYSTEMS: CONSTITUTIONAL: No fever, no malaise, no fatigue. HEENT: No recent visual problems or hearing problems. Denied any sore throat. CARDIOVASCULAR: No chest pain, orthopnea, PND, no palpitations, no syncope. PULMONARY: No shortness of breath, no cough, no hemoptysis. GASTROINTESTINAL: As mentioned in HPI NEUROLOGICAL: No headaches, no weakness, no numbness. HEMATOLOGICAL: Denies any bleeding or petechiae. GENITOURINARY: Denies any burning micturition, frequency, or urgency. MUSCULOSKELETAL/RHEUMATOLOGICAL: Denies any joint pain, swelling, or any muscle pain. ENDOCRINE: Denies any polyuria or polydipsia. The rest of the 14-point review of systems is negative. PHYSICAL EXAMINATION: GENERAL: The patient is alert and oriented x3, not in any acute distress. Well developed, well nourished. HEENT: Pupils are round and equally reacting to light. EOMI. No scleral icterus. No conjunctival pallor. Normocephalic, atraumatic. No pharyngeal erythema. No thyromegaly. CARDIOVASCULAR: S1 and S2 present. No murmurs, rubs, or gallops. PULMONARY: Chest is clear to auscultation, no wheezing or crackles. ABDOMEN: Soft, epigastric abdominal tenderness, nondistended, normoactive bowel sounds. No palpable organomegaly. MUSCULOSKELETAL: No joint swelling or deformity. EXTREMITIES: No cyanosis, clubbing, or pedal edema. NEUROLOGICAL: Gross neurological examination did not reveal any focal deficits. SKIN: No rashes. Assessment and plan 1 acute pancreatitis: Idiopathic, triglyceride level will be obtained. Patient will remain on IV fluids patient probably can be started on clear liquid diet but I'll leave this decision to gastroenterology. -Leukocytosis reactive secondary to ascites which is improving at this time -Nicotine abuse: Counseling was provided nicotine patch will be ordered -Elevated liver enzymes secondary to systemic inflammatory response from pancreatitis no evidence of choledocholithiasis at this time. DVT prophylaxis: Lovenox Past Medical History Past Medical History: Asthma Additional Past Medical History / Comment(s): Obesity and gestational diabetes., chronic gastritis, pancreatitis History of Any Multi-Drug Resistant Organisms: None Reported Past Surgical History: Cholecystectomy Past Anesthesia/Blood Transfusion Reactions: No Reported Reaction Smoking Status: Current every day smoker - Past Family History Mother Family Medical History: No Reported History Additional Family Medical History / Comment(s): Currently alive, Cervical cancer terminal Medications and Allergies Home Medications Medication Instructions Recorded Confirmed Type Fexofenadine HCl [Anaid Allergy] 180 mg PO DAILY 04/09/21 05/06/21 History Omeprazole Magnesium [PriLOSEC OTC] 20 mg PO BID 04/09/21 05/06/21 History Dicyclomine HCl 10 mg PO TID 05/06/21 05/06/21 History Pantoprazole Sodium [Protonix] 40 mg PO DAILY 05/06/21 05/06/21 History Allergies Allergy/AdvReac Type Severity Reaction Status Date / Time latex Allergy Mild Rash/Hives Verified 05/06/21 21:07 Penicillins Allergy Unknown Verified 05/06/21 21:07 Sulfa (Sulfonamide Allergy Unknown Verified 05/06/21 21:07 Antibiotics) Physical Exam Vitals: Vital Signs Temp Pulse Pulse Resp BP BP Pulse Ox 05/07/21 14:00 98.0 F 66 16 97/62 98 05/07/21 08:10 98.5 F 67 18 105/62 98 05/06/21 23:57 98.3 F 70 18 104/70 05/06/21 23:22 73 18 117/74 98 05/06/21 20:40 81 20 127/75 100 05/06/21 20:37 98.2 F 81 18 95/66 99 Intake and Output 05/07/21 05/07/21 05/07/21 06:59 14:59 22:59 Other: # Voids 2 Weight 97.2 kg Results CBC & Chem 7: 05/07/21 08:59 05/07/21 08:59 Labs: Abnormal Lab Results - Last 24 Hours (Table) 05/06/21 05/06/21 05/06/21 Range/Units 21:06 21:06 21:06 WBC 15.1 H (3.8-10.6) k/uL Plt Count 144 L (150-450) k/uL Neutrophils # 11.7 H (1.3-7.7) k/uL Chloride (98-107) mmol/L BUN (7-17) mg/dL Glucose 123 H (74-99) mg/dL Calcium (8.4-10.2) mg/dL AST 64 H (14-36) U/L ALT (4-34) U/L Total Protein (6.3-8.2) g/dL Albumin (3.5-5.0) g/dL Amylase 1268 H* (30-110) U/L Lipase 00444 H (23-300) U/L Urine Appearance Cloudy H (Clear) Urine Ketones 1+ H (Negative) Ur Leukocyte Esterase Small H (Negative) Urine WBC 7 H (0-5) /hpf Urine Bacteria Many H (None) /hpf Urine Mucus Rare H (None) /hpf Urine Yeast (Budding) Few H (None) /hpf 05/07/21 05/07/21 Range/Units 08:59 08:59 WBC (3.8-10.6) k/uL Plt Count 122 L (150-450) k/uL Neutrophils # (1.3-7.7) k/uL Chloride 115 H (98-107) mmol/L BUN 6 L (7-17) mg/dL Glucose (74-99) mg/dL Calcium 8.2 L (8.4-10.2) mg/dL AST 283 H (14-36) U/L ALT 199 H (4-34) U/L Total Protein 5.4 L (6.3-8.2) g/dL Albumin 3.1 L (3.5-5.0) g/dL Amylase (30-110) U/L Lipase (23-300) U/L Urine Appearance (Clear) Urine Ketones (Negative) Ur Leukocyte Esterase (Negative) Urine WBC (0-5) /hpf Urine Bacteria (None) /hpf Urine Mucus (None) /hpf Urine Yeast (Budding) (None) /hpf Thrombosis Risk Factor Assmnt - Choose All That Apply Each Factor Represents 1 point: Obesity (BMI >25) Thrombosis Risk Factor Assessment Total Risk Factor Score: 1 Thrombosis Risk Factor Assessment Level: Low Risk
[2021-05-07] MEDS ORDERED: DOCUSATE 100 MG CAP PO SCH (21:00)
[2021-05-08] MEDS: HYDROmorphone 1 MG/ML 1 ML SYRINGE IVP PRN ×3 (00:20→12:02)
[2021-05-08 07:23] LABS: Glucose 64 mg/dL (74-99); Total Protein 5.8 g/dL (6.3-8.2)
[2021-05-08 07:24] LABS: ALT 165 U/L (4-34); AST 106 U/L (14-36); African American GFR (CKD) >90 (>60 ml/min/1.73 sqM); Albumin 3.3 g/dL (3.5-5.0); Alkaline Phosphatase 123 U/L (38-126); Anion Gap 6 mmol/L; Blood Urea Nitrogen 3 mg/dL (7-17); Calcium 8.7 mg/dL (8.4-10.2); Carbon Dioxide 21 mmol/L (22-30); Chloride 111 mmol/L (98-107); Lipase 124 U/L (23-300); Non-African American GFR(CKD) >90 (>60 ml/min/1.73 sqM); Potassium 4.4 mmol/L (3.5-5.1); Sodium 138 mmol/L (137-145); Total Bilirubin 0.9 mg/dL (0.2-1.3)
[2021-05-08] MEDS: PANTOPRAZOLE 40 MG/10 ML VIAL IVP SCH (08:42)
[2021-05-08] MEDS: DOCUSATE 100 MG CAP PO SCH (08:42)
[2021-05-08] MEDS: NICOTINE 14MG/24HR PATCH TRANSDERM SCH (08:43)
[2021-05-08] MEDS: SODIUM CHLORIDE 0.9% 1,000 ML IV SCH ×3 (08:47→14:36)
[2021-05-08 12:43] LABS: IgG Subclass 1 33.4 mg/dL (405.0-1011.0); IgG Subclass 3 3.2 mg/dL (11.0-85.0)
[2021-05-08] MEDS ORDERED: HYDROcodone/APAP 7.5-325MG 1 EACH TAB PO PRN (12:52)
[2021-05-08 13:31] LABS: IgG Subclass 2 <35.0 mg/dL (169.0-640.0); IgG Subclass 4 0.8 mg/dL (3.0-175.0)
--- NOTE | 2021-05-08 13:37 | P.DS ---
Providers Date of admission: 05/06/21 22:49 Attending physician: Claribel Ruano Consults: 05/06/21 22:56 Consult Physician Urgent Consulting Provider: Anurag Decker Reason/Comments: Pancreatitis Do you want consulting provider notified?: Yes Primary care physician: Joseph [facility] Course: Patient is a pleasant 30-year-old female came in the emergency department complains of severe epigastric abdominal pain along with nausea. Patient is found to have elevated highly elevated lipase up to 60 16,000 and elevated amylase. Patient doesn't drink alcohol regularly. Patient had had another episode of pancreatic that is in the past. Patient had a cholecystectomy in the past patient liver enzymes are bit elevated today because of which have gallbladder ultrasound was obtained as recommended by gastroenterology and he didn't show any choledocholithiasis. Patient had a CT of the abdomen which did not show any edema of the pancreas as per the radiologist's reading. She doesn't have nausea any more abdominal pain significantly improved and patient is hungry at this time patient is nothing by mouth is receiving IV fluids at this time. 05/08/2021 Patient is doing much better today patient wanted to go home we'll advance diet to full liquid diet and if she can tolerate full liquid diet patient will be discharged today. All the workup for pancreatitis is negative patient is a knee is negative patient triglycerides not ill levels are not elevated. Patient is not an alcoholic and patient doesn't have choledocholithiasis patient had a cholecystectomy in the past. PHYSICAL EXAMINATION: GENERAL: The patient is alert and oriented x3, not in any acute distress. Well developed, well nourished. HEENT: Pupils are round and equally reacting to light. EOMI. No scleral icterus. No conjunctival pallor. Normocephalic, atraumatic. No pharyngeal erythema. No thyromegaly. CARDIOVASCULAR: S1 and S2 present. No murmurs, rubs, or gallops. PULMONARY: Chest is clear to auscultation, no wheezing or crackles. ABDOMEN: Soft, no tenderness, nondistended, normoactive bowel sounds. No palpable organomegaly. MUSCULOSKELETAL: No joint swelling or deformity. EXTREMITIES: No cyanosis, clubbing, or pedal edema. NEUROLOGICAL: Gross neurological examination did not reveal any focal deficits. SKIN: No rashes. Assessment and plan 1 acute pancreatitis: Idiopathic, improved and lipase disease within normal limits now -Leukocytosis reactive secondary to ascites which improved -Nicotine abuse: Counseling was provided nicotine patch prescribed -Elevated liver enzymes secondary to systemic inflammatory response from pancreatitis no evidence of choledocholithiasis at this time. Improving now Patient Condition at Discharge: Fair Plan - Discharge Summary New Discharge Prescriptions: New Nicotine 14Mg/24Hr Patch [Habitrol] 1 patch TRANSDERM DAILY #14 patch Continue Fexofenadine HCl [Anaid Allergy] 180 mg PO DAILY Pantoprazole Sodium [Protonix] 40 mg PO DAILY Dicyclomine HCl 10 mg PO TID Omeprazole Magnesium [PriLOSEC OTC] 20 mg PO BID Discharge Medication List Fexofenadine HCl [Anaid Allergy] 180 mg PO DAILY 04/09/21 [History] Omeprazole Magnesium [PriLOSEC OTC] 20 mg PO BID 04/09/21 [History] Dicyclomine HCl 10 mg PO TID 05/06/21 [History] Pantoprazole Sodium [Protonix] 40 mg PO DAILY 05/06/21 [History] Nicotine 14Mg/24Hr Patch [Habitrol] 1 patch TRANSDERM DAILY #14 patch 05/08/21 [Rx] Follow up Appointment(s)/Referral(s): Brian Ruiz MD [Primary Care Provider] - 3 Days
[2021-05-08 14:16] VITALS: BP 104/63; PULSE 70; TEMP 98.3
--- NOTE | 2021-05-08 16:17 | PN ---
PROGRESS NOTE DATE OF SERVICE: 05/08/2021 The patient is a 31-year-old pleasant white female with acute recurrent pancreatitis, this being the third episode in the last few months. She admitted to the hospital with severe epigastric pain associated with nausea, vomiting and was noted to have elevated lipase consistent with acute pancreatitis. She was also noted to have mild elevation of serum transaminases at the time of admission to the hospital 2 days ago and subsequently, they increased into the 200s/300s range yesterday. She has remote history of gallbladder surgery 6 years ago for symptomatic gallstones. Because of elevated LFTs and clinical suspicion for CBD stone, she was advised to have MRCP done. However, she is severely claustrophobic and wants to have an open MRI done on outpatient basis. In the meantime, her symptoms are resolved. AST and ALT have improved to 106 and 165, respectively T bilirubin and alkaline phosphatase are within normal limits. PHYSICAL EXAMINATION: She appears comfortable. No apparent distress. Vital signs are stable. Blood pressure is 112/63, pulse 70, temperature 98.3. HEENT: Examination unremarkable, sclerae anicteric. Oral cavity, no lesions. NECK: No JVD or lymph node enlargement. CHEST: Clear to auscultation. HEART: Regular rate and rhythm. ABDOMEN: Soft. Bowel sounds are positive. No organomegaly. EXTREMITIES: No pedal edema. SKIN: No rashes. NEURO: She is alert and oriented x3. No focal deficits. LABS: From today, WBC is 7.9, hemoglobin 13, platelets 122. AST 106, ALT 165. T bilirubin and alkaline phosphatase are within normal limits. Lipase was 30460, 168 2 days ago and today is 124. IMPRESSION: Acute recurrent pancreatitis, this being the third episode in the last few months with elevated serum transaminases. Possibility of biliary pancreatitis secondary to retained common bile duct stone cannot be excluded. Ultrasound and CT of the abdomen and pelvis done during this hospitalization did not show any evidence of biliary ductal dilation. Serum transaminases are improving. Lipase has normalized and patient feeling much better. I recommended an MRCP on an outpatient basis as patient refuses to have MRI in the hospital because of claustrophobia. RECOMMENDATIONS: 1. Agree with pain medications as needed. 2. Low-fat diet. 3. She can be discharged home today with an outpatient MRCP and follow up in office in 3-4 weeks. Thank you for this consultation. MMODL / IJN: [id number] /
== END 2021-05-08 15:50 | disposition home or self-care (01) ==
LOC: EC 20:37 → 6PED 22:49
PROVIDERS: ADMIT Internal Medicine; ATTEND Internal Medicine
DX: K85.00 Idiopathic acute pancreatitis without necrosis or infection (principal); R18.8 Other ascites; K76.0 Fatty (change of) liver, not elsewhere classified; F17.210 Nicotine dependence, cigarettes, uncomplicated; K86.1 Other chronic pancreatitis; E66.9 Obesity, unspecified; Z68.25 Body mass index [BMI] 25.0-25.9, adult; F40.240 Claustrophobia; J45.909 Unspecified asthma, uncomplicated; F32.9 Major depressive disorder, single episode, unspecified; F41.9 Anxiety disorder, unspecified; Z79.899 Other long term (current) drug therapy; Z91.040 Latex allergy status; Z88.0 Allergy status to penicillin; Z88.2 Allergy status to sulfonamides; Z90.49 Acquired absence of other specified parts of digestive tract; Z86.32 Personal history of gestational diabetes; Z87.19 Personal history of other diseases of the digestive system; Z80.49 Family history of malignant neoplasm of other genital organs
CPT/HCPCS: 96361 ×2; 96376 ×2; 96375 ×2; 96374; 99285; 36415; 80053 ×3; 82150; 83605; 83690 ×2; 84478; 85025; 85027; 85610; 85730; 81001; 81025; 82787; 86038; 76705; 74176; G0378 ×3; S4990; J2405; J1170 ×4; C9113 ×3

== ENCOUNTER 2024-09-13 22:37 | Emergency (ER) | payer OTHER ==
[2024-09-13] MEDS: SODIUM CHLORIDE 0.9% 1,000 ML IV ONE (23:37)
[2024-09-13 23:45] LABS: Basophils % (A) 0 %; Eosinophils # (A) 0.2 k/uL (0-0.7); Eosinophils % (A) 2 %; HGB 12.6 gm/dL (11.4-16.0); Lymphocytes # (A) 2.6 k/uL (1.0-4.8); Lymphocytes % (A) 19 %; MCH 29.1 pg (25.0-35.0); MCHC 33.2 g/dL (31.0-37.0); MCV 87.8 fL (80.0-100.0); Mean Platelet Volume 9.2; Monocytes # (A) 0.6 k/uL (0-1.0); Monocytes % (A) 4 %; Neutrophils # (A) 9.9 k/uL (1.3-7.7); Neutrophils % (A) 73 %; Platelet Count 124 k/uL (150-450); RBC 4.33 m/uL (3.80-5.40); RDW 13.3 % (11.5-15.5); WBC 13.5 k/uL (3.8-10.6)
[2024-09-14 00:02] LABS: INR 0.9 (<1.2); Partial Thromboplastin Time 24.5 sec (22.0-30.0); Prothrombin Time 10.1 sec (10.0-12.5)
[2024-09-14 00:10] LABS: Amorphous Sediment,Urine Rare /hpf; Appearance,Urine Clear (Clear); Bacteria,Urine Many /hpf; Bilirubin,Urine Negative (Negative); Blood,Urine Small (Negative); Color,Urine Colorless; Glucose,Urine (UA) Negative (Negative); Ketones,Urine Negative (Negative); Leukocyte Esterase,Urine Negative (Negative); Nitrite,Urine Negative (Negative); Protein,Urine Negative (Negative); RBC,Urine 3 /hpf (0-5); Specific Gravity,Urine 1.007 (1.001-1.035); Squamous Epithelial Cell,Urine 3 /hpf (0-4); Urobilinogen,Urine <2.0 mg/dL (<2.0); WBC,Urine 6 /hpf (0-5)
[2024-09-14 00:36] LABS: ALT 12 U/L (4-34); AST 13 U/L (14-36); African American GFR (CKD) >90 (>60 ml/min/1.73 sqM); Alkaline Phosphatase 77 U/L (38-126); Anion Gap 6 mmol/L; Blood Urea Nitrogen 8 mg/dL (7-17); Calcium 8.6 mg/dL (8.4-10.2); Carbon Dioxide 23 mmol/L (22-30); Chloride 105 mmol/L (98-107); Glucose 109 mg/dL (74-99); Non-African American GFR(CKD) >90 (>60 ml/min/1.73 sqM); Potassium 3.3 mmol/L (3.5-5.1); Sodium 134 mmol/L (137-145); Total Bilirubin 0.2 mg/dL (0.2-1.3); Total Protein 5.5 g/dL (6.3-8.2)
--- NOTE | 2024-09-14 01:09 | US ---
EXAM: US , Limited CLINICAL HISTORY: bleeding TECHNIQUE: Real-time limited ultrasound of the maternal uterus with image documentation. COMPARISON: No relevant prior studies available. FINDINGS: Gestational age: The estimated gestational age by biometry is consistent with 15 weeks 5 days. TERI: The estimated date of delivery is 03/02/2025. EFW: The estimated weight is 119 g. BPD: The biparietal diameter is consistent with 16 weeks 0 days. HC: Head circumference is consistent with 16 weeks 0 days. AC: The abdominal circumference is consistent with 15 weeks 2 days. FL: Femur length is consistent with 15 weeks 1 day. Position: A single intrauterine gestation is identified in the transverse, head right position. Placenta: Sinuses anterior location without abruption or previa. Amniotic fluid: The JACOB is 14.3 cm. Cervix: The cervix is closed measuring 3.9 cm. Free fluid: No maternal free fluid noted. IMPRESSION: 1. A single intrauterine gestation is identified in the transverse, head right position. Positive heart tones of 160 bpm. 2. The cervix is closed measuring 3.9 cm. The placenta is anterior in location without abruption or previa. 3. The estimated gestational age by biometry is consistent with 15 weeks 5 days. The estimated date of delivery is 03/02/2025. 4. The JACOB is 14.3 cm.
--- NOTE | 2024-09-14 01:34 | ED ---
Female Urogenital HPI - General Chief complaint: Vaginal Bleeding Stated complaint: Vaginal bleeding- 15wks preg Time Seen by Provider: 09/13/24 22:55 Source: patient Mode of arrival: ambulatory - History of Present Illness Initial comments: 34-year-old female currently about 15 weeks presenting with chief complaint of vaginal bleeding. Patient states that she had one quarter sized clot that had passed 1 time. She had no further bleeding. No pain. She has not been able to get in with an IRRADIATED FUEL HANDLER due to her insurance. She has had elective ultrasounds that confirmed intrauterine . No weakness. No fevers. No urinary symptoms. A1, history of miscarriage - Related Data Home Medications Medication Instructions Recorded Confirmed Fexofenadine HCl [Anaid Allergy] 180 mg PO DAILY 04/09/21 05/06/21 Omeprazole Magnesium [PriLOSEC OTC] 20 mg PO BID 04/09/21 05/06/21 Dicyclomine HCl 10 mg PO TID 05/06/21 05/06/21 Pantoprazole Sodium [Protonix] 40 mg PO DAILY 05/06/21 05/06/21 Previous Rx's Medication Instructions Recorded Nicotine 14Mg/24Hr Patch [Habitrol] 1 patch TRANSDERM DAILY #14 patch 05/08/21 Ondansetron Odt [Zofran Odt] 4 mg PO Q8HR PRN #15 tab 05/08/21 Nitrofurantoin Monohyd/M-Cryst 100 mg PO Q12HR 5 Days #10 cap 09/15/24 [Macrobid] Allergies Allergy/AdvReac Type Severity Reaction Status Date / Time latex Allergy Mild Rash/Hives Verified 09/13/24 22:49 Penicillins Allergy Unknown Verified 09/13/24 22:49 Sulfa (Sulfonamide Allergy Unknown Verified 09/13/24 22:49 Antibiotics) Review of Systems ROS Statement: Those systems with pertinent positive or pertinent negative responses have been documented in the HPI. ROS Other: All systems not noted in ROS Statement are negative. Past Medical History Past Medical History: Asthma, GERD/Reflux Additional Past Medical History / Comment(s): Obesity and gestational diabetes., chronic gastritis, pancreatitis, psuedo-tumor History of Any Multi-Drug Resistant Organisms: None Reported Past Surgical History: Cholecystectomy Past Anesthesia/Blood Transfusion Reactions: No Reported Reaction Past Psychological History: Anxiety, Depression Smoking Status: Current every day smoker - Past Family History Mother Family Medical History: No Reported History Additional Family Medical History / Comment(s): Currently alive, Cervical cancer terminal General Exam General appearance: alert, in no apparent distress Head exam: Present: atraumatic, normocephalic, normal inspection Eye exam: Present: normal appearance, EOMI Neck exam: Present: normal inspection. Absent: meningismus Respiratory exam: Present: normal lung sounds bilaterally. Absent: respiratory distress, wheezes, rales, rhonchi, stridor Cardiovascular Exam: Present: regular rate, normal rhythm, normal heart sounds. Absent: systolic murmur, diastolic murmur, rubs, gallop, clicks GI/Abdominal exam: Present: soft. Absent: distended, tenderness, guarding, rebound, rigid Neurological exam: Present: alert, oriented X3 Psychiatric exam: Present: normal affect, normal mood Skin exam: Present: warm, dry Course Vital Signs 09/13/24 09/14/24 22:45 02:04 Temperature 98.2 F 98.4 F Pulse Rate 95 59 L Respiratory 18 16 Rate Blood Pressure 113/62 112/68 O2 Sat by Pulse 100 98 Oximetry Medical Decision Making - Medical Decision Making Was pt. sent in by a medical professional or institution (, PA, FUELER, urgent care, hospital, or intermediate...) When possible be specific @ -No Did you speak to anyone other than the patient for history (EMS, parent, family, police, friend...)? What history was obtained from this source @ -No Did you review nursing and triage notes (agree or disagree)? Why? @ -I reviewed and agree with nursing and triage notes Were old charts reviewed (outside hosp., previous admission, EMS record, old EKG, old radiological studies, urgent care reports/EKG's, intermediate records)? Report findings @ -No old charts were reviewed Differential Diagnosis (chest pain, altered mental status, abdominal pain women, abdominal pain men, vaginal bleeding, weakness, fever, dyspnea, syncope, headache, dizziness, GI bleed, back pain, seizure, CVA, palpatations, mental health, musculoskeletal)? @ -MDM Differential Vaginal Bleeding: Spontaneous , threatened , molar , ectopic , bloody show, incompetent cervix, abruptioplacenta, placenta previa, uterine rupture, dysfunctional uterine bleeding, hemorrhage, uterine fibroids. ... This is not meant to be an all-inclusive list EKG interpreted by me (3pts min.). @ -As above X-rays interpreted by me (1pt min.). @ -None done CT interpreted by me (1pt min.). @ -None done U/S interpreted by me (1pt. min.). @ -Ultrasound shows single intrauterine gestation identified in the transverse hide right position. Positive heart tones of 160 bpm. The cervix is closed measuring 3.9 cm. The placenta is anterior in location without abruption or previa. The estimated gestational age by biometry is consistent with 15 weeks 5 days. Estimated date of delivery is 02/27/2025. The JACOB is 14.3 cm What testing was considered but not performed or refused? (CT, X-rays, U/S, labs)? Why? @ -None What meds were considered but not given or refused? Why? @ -None Did you discuss the management of the patient with other professionals (pro fessionals i.e. , PA, FUELER, lab, RT, psych nurse, public health social worker, pcb design engineer, teacher, chief program officer, community case manager)? Give summary @ -No Was smoking cessation discussed for >3mins.? @ -No Was critical care preformed (if so, how long)? @ -No Were there social determinants of health that impacted care today? How? (Homelessness, low income, unemployed, alcoholism, drug addiction, transportation, low edu. Level, literacy, decrease access to med. care, long-term, rehab)? @ -No Was there de-escalation of care discussed even if they declined (Discuss DNR or withdrawal of care, Hospice)? DNR status @ -No What co-morbidities impacted this encounter? (DM, HTN, Smoking, COPD, CAD, Cancer, CVA, ARF, Chemo, Hep., AIDS, mental health diagnosis, sleep apnea, morbid obesity)? @ -None Was patient admitted / discharged? Hospital course, mention meds given and route, prescriptions, significant lab abnormalities, going to OR and other pertinent info. @ -34-year-old female presenting with chief complaint of vaginal bleeding. She is 15 weeks . No pain. History and physical examination are conduct ed. WBC 13.5. Hemoglobin stable at 12.6. Blood type a positive, no RhoGAM indicated. ultrasound shows single live IUP. Patient has no recurrence of her bleeding. Urine shows contamination, sent for culture, will treat with Macrobid. Patient is educated on today's findings. She wants to follow-up with her previous IRRADIATED FUEL HANDLER, will call on Tuesday. Report back to ER with any new or worsening symptoms. Discussed return parameters and answered all questions. Patient conveyed verbal understanding and agreed to the plan. I discussed this case in detail with my attending Dr. Justin Undiagnosed new problem with uncertain prognosis? @ -No Drug Therapy requiring intensive monitoring for toxicity (Heparin, Nitro, Insulin, Cardizem)? @ -No Were any procedures done? @ -No Diagnosis/symptom? @ -Threatened Acute, or Chronic, or Acute on Chronic? @ -Acute Uncomplicated (without systemic symptoms) or Complicated (systemic symptoms)? @ -Uncomplicated Side effects of treatment? @ -No Exacerbation, Progression, or Severe Exacerbation? @ -No Poses a threat to life or bodily function? How? (Chest pain, [place], [place], pneumonia, PE, COPD, DKA, ARF, appy, cholecystitis, CVA, Diverticulitis, Homicidal, Suicidal, threat to staff... and all critical care pts) @ -Potential threat to the as this is a threatened - Lab Data Result diagrams: 09/13/24 23:36 09/13/24 23:36 Lab Results 09/13/24 09/13/24 09/13/24 Range/Units 23:20 23:36 23:36 WBC 13.5 H (3.8-10.6) k/uL RBC 4.33 (3.80-5.40) m/uL Hgb 12.6 (11.4-16.0) gm/dL Hct 38.0 (34.0-46.0) % MCV 87.8 (80.0-100.0) fL MCH 29.1 (25.0-35.0) pg MCHC 33.2 (31.0-37.0) g/dL RDW 13.3 (11.5-15.5) % Plt Count 124 L (150-450) k/uL MPV 9.2 Neutrophils % 73 % Lymphocytes % 19 % Monocytes % 4 % Eosinophils % 2 % Basophils % 0 % Neutrophils # 9.9 H (1.3-7.7) k/uL Lymphocytes # 2.6 (1.0-4.8) k/uL Monocytes # 0.6 (0-1.0) k/uL Eosinophils # 0.2 (0-0.7) k/uL Basophils # 0.0 (0-0.2) k/uL PT 10.1 (10.0-12.5) sec INR 0.9 (<1.2) APTT 24.5 (22.0-30.0) sec Sodium (137-145) mmol/L Potassium (3.5-5.1) mmol/L Chloride (98-107) mmol/L Carbon Dioxide (22-30) mmol/L Anion Gap mmol/L BUN (7-17) mg/dL Creatinine (0.52-1.04) mg/dL Est GFR (CKD-EPI)AfAm (>60 ml/min/1.73 sqM) Est GFR (CKD-EPI)NonAf (>60 ml/min/1.73 sqM) Glucose (74-99) mg/dL Calcium (8.4-10.2) mg/dL Total Bilirubin (0.2-1.3) mg/dL AST (14-36) U/L ALT (4-34) U/L Alkaline Phosphatase (38-126) U/L Total Protein (6.3-8.2) g/dL Albumin (3.5-5.0) g/dL Urine Color Colorless Urine Appearance Clear (Clear) Urine pH 6.0 (5.0-8.0) Ur Specific [place] 1.007 (1.001-1.035) Urine Protein Negative (Negative) Urine Glucose (UA) Negative (Negative) Urine Ketones Negative (Negative) Urine Blood Small H (Negative) Urine Nitrite Negative (Negative) Urine Bilirubin Negative (Negative) Urine Urobilinogen <2.0 (<2.0) mg/dL Ur Leukocyte Esterase Negative (Negative) Urine RBC 3 (0-5) /hpf Urine WBC 6 H (0-5) /hpf Ur Squamous Epith Cells 3 (0-4) /hpf Amorphous Sediment Rare H (None) /hpf Urine Bacteria Many H (None) /hpf Blood Type Blood Type Recheck Bld Type Recheck Status 09/13/24 09/13/24 Range/Units 23:36 23:36 WBC (3.8-10.6) k/uL RBC (3.80-5.40) m/uL Hgb (11.4-16.0) gm/dL Hct (34.0-46.0) % MCV (80.0-100.0) fL MCH (25.0-35.0) pg MCHC (31.0-37.0) g/dL RDW (11.5-15.5) % Plt Count (150-450) k/uL MPV Neutrophils % % Lymphocytes % % Monocytes % % Eosinophils % % Basophils % % Neutrophils # (1.3-7.7) k/uL Lymphocytes # (1.0-4.8) k/uL Monocytes # (0-1.0) k/uL Eosinophils # (0-0.7) k/uL Basophils # (0-0.2) k/uL PT (10.0-12.5) sec INR (<1.2) APTT (22.0-30.0) sec Sodium 134 L (137-145) mmol/L Potassium 3.3 L (3.5-5.1) mmol/L Chloride 105 (98-107) mmol/L Carbon Dioxide 23 (22-30) mmol/L Anion Gap 6 mmol/L BUN 8 (7-17) mg/dL Creatinine 0.80 (0.52-1.04) mg/dL Est GFR (CKD-EPI)AfAm >90 (>60 ml/min/1.73 sqM) Est GFR (CKD-EPI)NonAf >90 (>60 ml/min/1.73 sqM) Glucose 109 H (74-99) mg/dL Calcium 8.6 (8.4-10.2) mg/dL Total Bilirubin 0.2 (0.2-1.3) mg/dL AST 13 L (14-36) U/L ALT 12 (4-34) U/L Alkaline Phosphatase 77 (38-126) U/L Total Protein 5.5 L (6.3-8.2) g/dL Albumin 3.0 L (3.5-5.0) g/dL Urine Color Urine Appearance (Clear) Urine pH (5.0-8.0) Ur Specific [place] (1.001-1.035) Urine Protein (Negative) Urine Glucose (UA) (Negative) Urine Ketones (Negative) Urine Blood (Negative) Urine Nitrite (Negative) Urine Bilirubin (Negative) Urine Urobilinogen (<2.0) mg/dL Ur Leukocyte Esterase (Negative) Urine RBC (0-5) /hpf Urine WBC (0-5) /hpf Ur Squamous Epith Cells (0-4) /hpf Amorphous Sediment (None) /hpf Urine Bacteria (None) /hpf Blood Type A Positive Blood Type Recheck A Pos Bld Type Recheck Status [facility] ONLY Disposition Clinical Impression: Threatened Disposition: HOME SELF-CARE Condition: Good Instructions (If sedation given, give patient instructions): Threatened Miscarriage (ED) Additional Instructions: Follow-up with your IRRADIATED FUEL HANDLER. Report back to ER with any new or worsening symptoms. Prescriptions: Nitrofurantoin Monohyd/M-Cryst [Macrobid] 100 mg PO Q12HR 5 Days #10 cap Is patient prescribed a controlled substance at d/c from ED?: No Referrals: None,Stated [Primary Care Provider] - 1-2 days Time of Disposition: 01:34
[2024-09-14 02:12] VITALS: BP 112/68; PULSE 59; RESP 16; TEMP 98.4
== END 2024-09-14 02:12 | disposition home or self-care (01) ==
LOC: EC 22:37
DX: O20.0 Threatened abortion (principal); O99.212 Obesity complicating pregnancy, second trimester; O99.332 Smoking (tobacco) complicating pregnancy, second trimester; F17.200 Nicotine dependence, unspecified, uncomplicated; Z3A.15 15 weeks gestation of pregnancy; Z88.0 Allergy status to penicillin; Z88.2 Allergy status to sulfonamides; Z91.040 Latex allergy status
CPT/HCPCS: 36415; 76805; 80053; 81001; 85025; 85610; 85730; 86900; 86901; 96360; 99284

== ENCOUNTER 2025-02-19 11:25 | Inpatient (IN) | payer OTHER ==
[2025-02-19] MEDS ORDERED: TERBUTALINE 1 MG/ML VIAL SQ PRN (12:00)
[2025-02-19] MEDS ORDERED: miSOPROStoL 200 MCG TAB RECTAL PRN (12:00)
[2025-02-19] MEDS ORDERED: OXYTOCIN 30 UNITS/500 ML NS 30 UNIT in SALINE 1 500ML.BAG IV SCH ×2 (12:00→17:30)
[2025-02-19] MEDS ORDERED: TRANEXAMIC 1,000 MG/100ML-NACL 1,000 MG in EMPTY BAG 1 BAG IV PRN (12:00)
[2025-02-19] MEDS ORDERED: OXYTOCIN 10 UNIT/ML 1 ML VIAL IM PRN (12:00)
[2025-02-19] MEDS ORDERED: CARBOPROST TROMETHAMINE 250 MCG/ML 1 ML AMP IM PRN (12:00)
[2025-02-19] MEDS ORDERED: miSOPROStoL 200 MCG TAB PO PRN (12:00)
[2025-02-19] MEDS ORDERED: METHYLERGONOVINE 0.2 MG/ML 1 ML AMP IM PRN (12:00)
[2025-02-19 13:14] LABS: Basophils # (A) 0.05 10*3/uL (0.00-0.10); Basophils % (A) 0.3 %; Eosinophils # (A) 0.09 10*3/uL (0.04-0.35); Eosinophils % (A) 0.5 %; HCT 36.2 % (37.2-46.3); HGB 12.4 g/dL (12.0-15.0); Lymphocytes # (A) 2.66 10*3/uL (0.90-5.00); Lymphocytes % (A) 14.6 %; MCHC 34.3 g/dL (32.0-37.0); MCV 84.8 fL (80.0-97.0); Mean Platelet Volume 12.8 fL (9.5-12.2); Monocytes # (A) 0.89 10*3/uL (0.20-1.00); Monocytes % (A) 4.9 %; Neutrophils # (A) 14.39 10*3/uL (1.80-7.70); Neutrophils % (A) 78.9 %; Platelet Count 155 10*3/uL (140-440); RBC 4.27 10*6/uL (4.10-5.20); RDW 13.2 % (11.5-14.5); WBC 18.23 10*3/uL (4.50-10.00)
[2025-02-19] MEDS ORDERED: SODIUM CHLORIDE 0.9% 250 ML BAG ONE (13:18)
[2025-02-19] MEDS ORDERED: ROPIVACAINE 5 MG/ML 30 ML VIAL ONE (13:18)
[2025-02-19] MEDS ORDERED: fentaNYL (PF) 50 MCG/ML 5 ML AMP ONE (13:18)
[2025-02-19 14:07] VITALS: RESP 16
[2025-02-19] MEDS: LACTATED RINGERS 1,000 ML IV SCH (14:58)
--- NOTE | 2025-02-19 16:41 | P.HPOB ---
History of Present Illness H&P Date: 02/19/25 Chief Complaint: SROM, labor 34 year old presents at 37 weeks 5 days complaining of SROM at 8am. She was crystal every few minutes. heart tones Category 1 and cervix 5cm dilated. Review of Systems All systems: negative Constitutional: Denies chills, Denies fever Eyes: denies blurred vision, denies pain Ears, nose, mouth and throat: Denies headache, Denies sore throat Cardiovascular: Denies chest pain, Denies shortness of breath Respiratory: Denies cough Gastrointestinal: Denies abdominal pain, Denies diarrhea, Denies nausea, Denies vomiting Genitourinary: Denies dysuria, Denies hematuria Musculoskeletal: Denies myalgias Integumentary: Denies pruritus, Denies rash Neurological: Denies numbness, Denies weakness Psychiatric: Denies anxiety, Denies depression Endocrine: Denies fatigue, Denies weight change Past Medical History Past Medical History: Asthma, GERD/Reflux Additional Past Medical History / Comment(s): Obesity and gestational diabetes., chronic gastritis, pancreatitis, psuedo-tumor History of Any Multi-Drug Resistant Organisms: None Reported Past Surgical History: Cholecystectomy Past Anesthesia/Blood Transfusion Reactions: No Reported Reaction Past Psychological History: Anxiety, Depression Additional Psychological History / Comment(s): STATES NO RX Smoking Status: Current every day smoker Past Alcohol Use History: None Reported Past Drug Use History: None Reported - Past Family History Mother Family Medical History: No Reported History, Cancer Additional Family Medical History / Comment(s): cervical Medications and Allergies Home Medications Medication Instructions Recorded Confirmed Type Pantoprazole Sodium [Protonix] 40 mg PO DAILY 05/06/21 05/06/21 History Cetirizine HCl [Zyrtec] 10 mg PO DAILY 02/19/25 02/19/25 History Allergies Allergy/AdvReac Type Severity Reaction Status Date / Time Penicillins Allergy Unknown Verified 02/19/25 11:32 Sulfa (Sulfonamide Allergy Unknown Verified 02/19/25 11:32 Antibiotics) Exam Osteopathic Statement: *. No significant issues noted on an osteopathic st ructural exam other than those noted in the History and Physical/Consult. Vital Signs Temp Pulse Resp BP Pulse Ox 02/19/25 13:19 97.8 F 86 16 113/61 98 05/06/25 11:31 98.1 F 92 18 134/78 99 Intake and Output 02/19/25 02/19/25 02/19/25 06:59 14:59 22:59 Other: # Voids 2 Weight 117.934 kg Heart: Regular rate and rhythm Lungs: Clear to auscultation bilaterally Abdomen: Soft, nontender Extremities: Negative Homans sign Results Result Diagrams: 02/19/25 12:35 Abnormal Lab Results - Last 24 Hours (Table) 02/19/25 Range/Units 12:35 WBC 18.23 H (4.50-10.00) 10*3/uL Hct 36.2 L (37.2-46.3) % MPV 12.8 H (9.5-12.2) fL Immature Gran # 0.15 H (0.00-0.04) 10*3/uL Neutrophils # 14.39 H (1.80-7.70) 10*3/uL Assessment and Plan (1) 37 weeks gestation of Current Visit: Yes Status: Acute Code(s): Z3A.37 - 37 WEEKS GESTATION OF SNOMED Code(s): 46359265 (2) SROM (spontaneous rupture of membranes) Current Visit: Yes Status: Acute Code(s): VQY9588 - SNOMED Code(s): 975785412 Plan: 1. admit to [facility] 2. expectant management 3. anticipate normal vaginal delivery
[2025-02-19] MEDS ORDERED: HYDROCORTISONE 2.5% RECTAL CREAM 30 GM TUBE RECTAL PRN (17:20)
[2025-02-19] MEDS ORDERED: diphenhydrAMINE 25 MG CAP PO PRN (17:20)
[2025-02-19] MEDS ORDERED: diphenhydrAMINE 50 MG/ML 1 ML VIAL IVP PRN ×2 (17:20)
[2025-02-19] MEDS ORDERED: LANOLIN CREAM 1 GM TUBE TOPICAL PRN (17:20)
[2025-02-19] MEDS ORDERED: SIMETHICONE 80 MG CHEWABLE PO PRN (17:20)
[2025-02-19] MEDS ORDERED: BENZOCAINE/MENTHOL SPRAY 1 GM/SPRAY AEROSOL TOPICAL PRN (17:20)
[2025-02-19] MEDS ORDERED: diphenhydrAMINE 50 MG CAP PO PRN (17:20)
[2025-02-19] MEDS ORDERED: ZOLPIDEM 5 MG TAB PO PRN (17:20)
[2025-02-19] MEDS: LIDOCAINE 0.5% (PF) 5 MG/ML (50 ML SDV) SQ PRN (17:50)
[2025-02-19] MEDS: SENNOSIDES-DOCUSATE SODIUM 1 EACH TAB PO SCH (20:08)
[2025-02-19] MEDS: ACETAMINOPHEN TAB 500 MG TAB PO SCH (20:08)
[2025-02-19] MEDS: IBUPROFEN 800 MG TAB PO SCH (20:08)
[2025-02-20 07:34] LABS: Basophils # (A) 0.04 10*3/uL (0.00-0.10); Basophils % (A) 0.3 %; Eosinophils # (A) 0.09 10*3/uL (0.04-0.35); Eosinophils % (A) 0.7 %; HCT 31.9 % (37.2-46.3); HGB 10.7 g/dL (12.0-15.0); Lymphocytes # (A) 2.81 10*3/uL (0.90-5.00); Lymphocytes % (A) 20.4 %; MCH 28.5 pg (27.0-32.0); MCHC 33.5 g/dL (32.0-37.0); MCV 85.1 fL (80.0-97.0); Monocytes # (A) 0.93 10*3/uL (0.20-1.00); Monocytes % (A) 6.8 %; Neutrophils # (A) 9.79 10*3/uL (1.80-7.70); Platelet Count 133 10*3/uL (140-440); RBC 3.75 10*6/uL (4.10-5.20); RDW 13.2 % (11.5-14.5); WBC 13.77 10*3/uL (4.50-10.00)
--- NOTE | 2025-02-20 12:08 | P.PROBDLV ---
Vaginal Delivery Note - . Vaginal Delivery Note: Date of service 02/19/2025 34 year old presents at 37 weeks 5 days complaining of SROM at 8am. She was crystal every few minutes. heart tones Category 1 and cervix 5cm dilated. When she was 6-1/2 cm dilated uncomfortable crystal every 2 minutes she got an epidural. Her cervix was completely dilated at 1604. She pushed, delivered a viable male infant over intact perineum under epidural anesthesia at 1708. Head delivered OA, anterior shoulder delivered gentle downward guidance followed by posterior shoulder and rest of body. Nose mouth bulb suction, clear clamped and cut, placed on mother's abdomen. Apgars 9, 9, weight 6 pounds 14.8 ounces. Placenta delivered spontaneously, intact with three-vessel cord at 1712. Vagina, cervix, perineum inspected. First- degree midline and right labial lacerations were repaired with 3-0 Vicryl. Estimated blood loss 100 mL. Mother and baby in stable condition.
--- NOTE | 2025-02-20 12:09 | P.DS ---
Providers Date of admission: 02/19/25 11:44 Expected date of discharge: 02/20/25 Attending physician: Esther Cohen Primary care physician: Stated None - Discharge Diagnosis(es) (1) 37 weeks gestation of Current Visit: Yes Status: Resolved (2) SROM (spontaneous rupture of membranes) Current Visit: Yes Status: Resolved (3) Normal vaginal delivery Current Visit: No Status: Acute Hospital Course: Patient presented in active labor. She underwent a normal vaginal delivery. course was uneventful. She denies nausea, vomiting, chest pain, shortness of breath or calf pain. Patient will be discharged home day #1 in stable condition to follow-up with me in 6 weeks. Plan - Discharge Summary New Discharge Prescriptions: No Action Pantoprazole Sodium [Protonix] 40 mg PO DAILY Cetirizine HCl [Zyrtec] 10 mg PO DAILY Discharge Medication List Pantoprazole Sodium [Protonix] 40 mg PO DAILY 05/06/21 [History] Cetirizine HCl [Zyrtec] 10 mg PO DAILY 02/19/25 [History] Follow up Appointment(s)/Referral(s): Esther Cohen DO [Doctor of Osteopathic Medicine] - 04/03/25 1:15 pm Discharge Disposition: HOME SELF-CARE
[2025-02-20 16:31] VITALS: BP 106/70; PULSE 90; TEMP 97.4
== END 2025-02-20 19:38 | disposition home or self-care (01) | DRG 560 ==
LOC: FBPOP 11:25 → 4FBP 11:44
PROVIDERS: ADMIT Obstetrics & Gynecology; ATTEND Obstetrics & Gynecology
PROC: 0HQ9XZZ Repair Perineum Skin, External Approach (ICD-10-PCS; principal; 2025-02-19)
PROC: 0UQMXZZ Repair Vulva, External Approach (ICD-10-PCS; principal; 2025-02-19)
PROC: 10E0XZZ Delivery of Products of Conception, External Approach (ICD-10-PCS; principal; 2025-02-19)
DX: O99.62 Diseases of the digestive system complicating childbirth (principal); O99.52 Diseases of the respiratory system complicating childbirth; O99.334 Smoking (tobacco) complicating childbirth; F17.200 Nicotine dependence, unspecified, uncomplicated; O99.214 Obesity complicating childbirth; E66.9 Obesity, unspecified; O99.344 Other mental disorders complicating childbirth; F41.9 Anxiety disorder, unspecified; O70.0 First degree perineal laceration during delivery; F32.A Depression, unspecified; J45.909 Unspecified asthma, uncomplicated; K21.9 Gastro-esophageal reflux disease without esophagitis; K29.50 Unspecified chronic gastritis without bleeding; Z86.32 Personal history of gestational diabetes; Z79.899 Other long term (current) drug therapy; Z88.0 Allergy status to penicillin; Z88.2 Allergy status to sulfonamides; Z3A.37 37 weeks gestation of pregnancy; Z37.0 Single live birth
CPT/HCPCS: 84112; 85025; 86850; 86900; 86901; 99213